=== PATIENT | male | born 1975 | race Caucasian/White ===

== ENCOUNTER 2017-03-10 11:26 | Emergency (ER) | payer BC, SELFPAY ==
[2017-03-10 11:35] VITALS: BP 128/96; PULSE 83; RESP 20; TEMP 36.5; O2SAT 98; BMI 41.7
--- NOTE | 2017-03-10 11:56 | HMH.EDABDPAI ---
ED Disposition Clinical Impression: Umbilical hernia Qualifiers: Obstruction and gangrene presence: without obstruction or gangrene Qualified Code(s): K42.9 - Umbilical hernia without obstruction or gangrene Disposition: Home, Self-Care Condition on Discharge: Good Instructions: DI for Acute Abdomen Additional Instructions: CT scan is stable with no new changes per radiologist; see Dr. Ibarra for scheduled surgery on March 24, 2017. Rx Naproxen. Prescriptions: Naproxen [EC-Naprosyn] 500 mg PO BID PRN #20 tablet.dr SORIANO Reason: Mild To Moderate Pain Referrals: Provider,Referral, [Primary Care Provider] - - Critical Care Critical Care Time: No Attestation: On 03/10/17, the high probability of a clinically significant, sudden or life threatening deterioration of the following system(s) required my full and direct attention, intervention and personal management. The time I documented below is in addition to time spent performing reported procedures but includes the following listed in this critical care notation. Medical Decision Making Vital Signs: 03/10/17 11:35 Temperature 97.7 F Temperature Source Oral Pulse Rate [Right Brachial] 83 Respiratory Rate 20 Blood Pressure [Right Arm] 128/96 Blood Pressure Mean [Right Arm] 106 Blood Pressure Source [Right Arm] Automatic Cuff Blood Pressure Position [Right Arm] Sitting 02 Sat by Pulse Oximetry 98 Oxygen Delivery Method Room Air - Lab Data Lab results reviewed: Yes: I reviewed the patient's lab results. Lab Results 03/10/17 12:00: WBC 9.3, RBC 5.61, Hgb 16.2, Hct 48.2, MCV 86.0, MCH 28.8, MCHC 33.5, RDW 12.8, Plt Count 282, MPV 7.6, Neut % (Auto) 60.6, Lymph % (Auto) 32.3, [place] % (Auto) 5.3, Eos % (Auto) 1.0, Baso % (Auto) 0.8, Neut # (Auto) 5.6, Lymph # (Auto) 3.0, [place] # (Auto) 0.5, Eos # (Auto) 0.1, Baso # (Auto) 0.1 03/10/17 12:00: Sodium 135 L, Potassium 3.7, Chloride 100, Carbon Dioxide 28, Anion Gap 10.7, BUN 12, Creatinine 0.80, Estimated Creat Clear 138, Estimated GFR > 60, Est GFR ( Amer) > 60, Glucose 91, Calcium 9.2, Total Bilirubin 0.4, AST 22, ALT 26, Alkaline Phosphatase 109, Total Protein 8.2, Albumin 3.7, Globulin 4.5 H, Albumin/Globulin Ratio 0.8 L, Amylase 39, Lipase 144 03/10/17 12:10: Urine Color Yellow, Urine Appearance Clear, Urine pH 7.0, Ur Specific [place] 1.015, Urine Protein Negative, Urine Glucose (UA) Negative, Urine Ketones Negative, Urine Blood Negative, Urine Nitrate Negative, Urine Bilirubin Negative, Urine Urobilinogen 0.2, Ur Leukocyte Esterase Negative, Urine WBC Occasional, Ur Squamous Epith Cells 5-10, Urine Bacteria 1+, Urine Mucus 1+ Result diagrams: 03/10/17 12:00 03/10/17 12:00 Orders (Tests/Meds): ED MEDICATIONS Discontinued Medications Generic Name Dose Route Start Last Admin Trade Name Chinmay PRN Reason Stop Dose Admin Iopamidol 75 ml 03/10/17 12:41 03/10/17 12:42 [id number]; 75ml Vial IV 03/10/17 12:42 75 ml ONCE ONE Administration Sodium Chloride 10 ml 03/10/17 12:41 03/10/17 12:42 Rad-Saline Flush 10ml Syringe IV 03/10/17 12:42 10 ml ONCE ONE Administration - CT Data CT Scan: Abdomen, Pelvis Time Received: 13:[address] Reviewed: Yes: I have reviewed the patient's CT results, I have viewed the radiologist's interpretation Findings Narrative: stable; small umbilical hernia per report - William Inquiry Pt receiving controlled substance: No Abdominal Pain HPI - General Chief Complaint: Abdominal Pain Stated Complaint: aggravated hernia Time Seen by Provider: 03/10/17 11:56 Mode of Arrival: Family Vehicle Source of Information: Patient Limitations: No Limitations Description of Symptoms (Recalled from ER Triage Doc. by RN): PT STATES THAT HE SAW 3 WEEKS AGO FOR UMBILICAL HERNIA AND SCHEDULED SURGERY FOR 03/24/17. PT HAS HAD HERNIA SINCE HE WAS A TEENAGER. PT STATES THAT HIS PAIN HAS BEEN GETTING WORSE THIS MORNING AROUND HIS HERNIA. - History o
--- NOTE | 2017-03-10 12:01 | ED_ITS ---
ED Disposition Clinical Impression: Umbilical hernia Qualifiers: Obstruction and gangrene presence: without obstruction or gangrene Qualified Code(s): K42.9 - Umbilical hernia without obstruction or gangrene Disposition: Home, Self-Care Condition on Discharge: Good Instructions: DI for Acute Abdomen Additional Instructions: CT scan is stable with no new changes per radiologist; see Dr. Ibarra for scheduled surgery on March 24, 2017. Rx Naproxen. Prescriptions: Naproxen [EC-Naprosyn] 500 mg PO BID PRN #20 tablet.dr SORIANO Reason: Mild To Moderate Pain Referrals: Provider,Referral, [Primary Care Provider] - - Critical Care Critical Care Time: No Attestation: On 03/10/17, the high probability of a clinically significant, sudden or life threatening deterioration of the following system(s) required my full and direct attention, intervention and personal management. The time I documented below is in addition to time spent performing reported procedures but includes the following listed in this critical care notation. Medical Decision Making Vital Signs: 03/10/17 11:35 Temperature 97.7 F Temperature Source Oral Pulse Rate [Right Brachial] 83 Respiratory Rate 20 Blood Pressure [Right Arm] 128/96 Blood Pressure Mean [Right Arm] 106 Blood Pressure Source [Right Arm] Automatic Cuff Blood Pressure Position [Right Arm] Sitting 02 Sat by Pulse Oximetry 98 Oxygen Delivery Method Room Air - Lab Data Lab results reviewed: Yes: I reviewed the patient's lab results. Lab Results 03/10/17 12:00: WBC 9.3, RBC 5.61, Hgb 16.2, Hct 48.2, MCV 86.0, MCH 28.8, MCHC 33.5, RDW 12.8, Plt Count 282, MPV 7.6, Neut % (Auto) 60.6, Lymph % (Auto) 32.3 , [place] % (Auto) 5.3, Eos % (Auto) 1.0, Baso % (Auto) 0.8, Neut # (Auto) 5.6, Lymph # (Auto) 3.0, [place] # (Auto) 0.5, Eos # (Auto) 0.1, Baso # (Auto) 0.1 03/10/17 12:00: Sodium 135 L, Potassium 3.7, Chloride 100, Carbon Dioxide 28, Anion Gap 10.7, BUN 12, Creatinine 0.80, Estimated Creat Clear 138, Estimated GFR > 60, Est GFR ( Amer) > 60, Glucose 91, Calcium 9.2, Total Bilirubin 0.4, AST 22, ALT 26, Alkaline Phosphatase 109, Total Protein 8.2, Albumin 3.7, Globulin 4.5 H, Albumin/Globulin Ratio 0.8 L, Amylase 39, Lipase 144 03/10/17 12:10: Urine Color Yellow, Urine Appearance Clear, Urine pH 7.0, Ur Specific [place] 1.015, Urine Protein Negative, Urine Glucose (UA) Negative, Urine Ketones Negative, Urine Blood Negative, Urine Nitrate Negative, Urine Bilirubin Negative, Urine Urobilinogen 0.2, Ur Leukocyte Esterase Negative, Urine WBC Occasional, Ur Squamous Epith Cells 5-10, Urine Bacteria 1+, Urine Mucus 1+ Result diagrams: 03/10/17 12:00 03/10/17 12:00 Orders (Tests/Meds): ED MEDICATIONS Discontinued Medications Generic Name Dose Route Start Last Admin Trade Name Maldonadoq PRN Reason Stop Dose Admin Iopamidol 75 ml 03/10/17 12:41 03/10/17 12:42 [id number]; 75ml Vial IV 03/10/17 12:42 75 ml ONCE ONE Administration Sodium Chloride 10 ml 03/10/17 12:41 03/10/17 12:42 Rad-Saline Flush 10ml Syringe IV 03/10/17 12:42 10 ml ONCE ONE Administration - CT Data CT Scan: Abdomen, Pelvis Time Received: 13:[address] Reviewed: Yes: I have reviewed the patient's CT results, I have viewed the radiologist's interpretation Findings Narrative: stable; small umbilical hernia per report - William Inquiry
--- NOTE | 2017-03-10 12:06 | CT_ITS ---
CT abdomen pelvis w con CLINICAL INDICATION: Increased abdominal pain. Umbilical hernia ITS.REASON: UMBILICAL HERNIA ORDERING PHYSICIAN: Coral Jaeger MD PATIENT AGE: 41 years COMPARISON: 02/14/2017 TECHNIQUE: Axial images obtained with sagittal and coronal reformats. PROCEDURE: Oral Contrast: None IV Contrast: 75 mL's [id number]-370. FINDINGS: No acute findings in the lower chest. Several isodense hepatic foci once again noted may be related to hepatic cysts as previously described not significantly changed. The gallbladder, spleen, adrenal glands, and pancreas have an unremarkable appearance. There are bilateral renal cysts not significant changed. No obvious renal or ureteral calculi or hydronephrosis. There is a small umbilical hernia containing fat which is unchanged. There is no evidence of infiltration of the fat. No bowel is evident within the hernia. There is reported appendectomy. No intestinal obstruction or free air. No pelvic mass or abnormal fluid collection. No evidence of diverticulitis. No acute bony anomalies. IMPRESSION: 1. Overall stable CT appearance of the abdomen and pelvis compared to 02/14/2017 with no acute finding. 2. Small umbilical hernia containing fat unchanged. 3. Hepatic and renal cysts unchanged
[2017-03-10 12:16] LABS: Microscopic, Urine URINE MICROSCOPIC (MICROSCOPIC)
[2017-03-10 12:18] LABS: Basophils # 0.1 K/mm3 (0-0.2); Basophils % 0.8 % (0.1-2.0); Eosinophils # 0.1 K/mm3 (0.0-0.4); Hematocrit 48.2 % (42.0-52.0); Hemoglobin 16.2 g/dL (14.1-18.0); Lymphocytes % 32.3 K/mm3 (10-50); Mean Corpuscular HGB Conc 33.5 g/dL (31.8-35.4); Mean Corpuscular Hemoglobin 28.8 pg (27.0-31.2); Mean Platelet Volume 7.6 fl (7.4-10.4); Monocytes # 0.5 K/mm3 (0.1-1.0); Monocytes % 5.3 % (1.7-9.3); Neutrophils # 5.6 K/mm3 (1.8-7.8); Neutrophils % 60.6 % (37.0-80.0); Platelet Count 282 K/mm3 (142-424); Red Blood Count 5.61 M/mm3 (4.60-6.20); Red Cell Distribution Width 12.8 % (11.5-17.5); White Blood Count 9.3 K/mm3 (4.8-10.8)
[2017-03-10 12:20] LABS: Appearance,Urine CLEAR (Clear); Bilirubin,Urine Negative (Negative); Blood, Urine Negative (Negative); Color,Urine YELLOW (Yellow); Glucose,Urine (UA) Negative (Negative); Ketones,Urine Negative (Negative); Leukocyte Esterase,Urine Negative (Negative); Nitrate,Urine Negative (Negative); Protein,Urine Negative (Negative); Specific Gravity, Urine 1.015 (1.005-1.030); Urobilinogen,Urine 0.2 EU/dl (0.2)
[2017-03-10 12:30] LABS: Alanine Aminotransferase 26 U/L (12-78); Albumin Level 3.7 gm/dL (3.4-5.0); Albumin/Globulin Ratio 0.8 (1.1-1.8); Alkaline Phosphatase 109 U/L (46-116); Amylase 39 U/L (25-125); Anion Gap 10.7 mEq/L (5-15); Aspartate Amino Transferase 22 U/L (15-37); Bilirubin,Total 0.4 mg/dL (0.2-1.0); Blood Urea Nitrogen 12 mg/dL (7-18); Calcium 9.2 mg/dL (8.5-10.1); Carbon Dioxide 28 mmol/L (21.0-32.0); Chloride 100 mmol/L (98-107); Creatinine Clearance Estimated 138 mg/ml (0-300); Estimated Glomerular Filt Rate > 60 ml/min (>60); GFR (African American) > 60 ML/MIN (>60); Globulin 4.5 gm/dl (1.3-3.2); Glucose 91 mg/dL (74-106); Lipase 144 u/L (73-393); Potassium 3.7 mmoL/L (3.5-5.1); Sodium 135 mmol/L (136-145); Total Protein,Serum 8.2 gm/dL (6.4-8.2)
[2017-03-10 12:31] LABS: Bacteria,Urine 1+ /lpf; Mucus,Urine 1+ /lpf; WBC,Urine Occasional #/hpf (0-3)
== END 2017-03-10 14:54 | disposition home or self-care (01) ==
PROVIDERS: Emergency Provider Emergency Medicine; Family Provider Nurse Practitioner Family
DX: K42.9 Umbilical hernia without obstruction or gangrene (principal); Z72.0 Tobacco use
CPT/HCPCS: 74177; 80053; 81001; 82150; 83690; 85025; 99283; Q9967

== ENCOUNTER 2017-03-24 10:46 | Day surgery (SDC) | payer BC, SELFPAY ==
[2017-03-23 16:40] VITALS: BMI 42.3
[2017-03-24] VITALS (13 sets, daily range): BP systolic 110–155; BP diastolic 58–82; PULSE 75–87; RESP 16–20; TEMP 36.7–43; O2SAT 92–98
--- NOTE | 2017-03-24 11:48 | P.PN_ITS ---
[facility] Anesthesia Checklist - Patient Identification Patient Identification: Arm Band, Verbal (Name & ) - Structural Data Admitted From: Home Planned Operative Procedure/s: ventral hernia repair Consent for Planned Operative Procedure(s) Verified: Yes Verified Documents: Surgical Consent - NPO Status Verified Time NPO: 21:00 - Additional verifications Patient : No Anesthesia Reactions: No Hx Blood Transfusions: No Blood Transfusion Reaction: No Cephalosporin Allergy: No Previous Colonoscopy: No - Cardiovascular Assessment Heart Sounds: S1 & S2 Pulse Strength: Strong Pulse Rhythm: Regular Peripheral Edema: No - Airway Assessment C-Spine Mobility Assessed: Yes TMJ Mobility Assessed: Yes Dentition: Good Dentition - Neurological Assessment Level of Consciousness: Awake, Alert, Appropriate Hx Seizures: No Numbness or tingling in extremities: No - Genitourinary Assessment Voided corporate health consultant to O.R.: Yes - Anesthesia Plan Anesthesia Risk discussed: Yes Anesthesia Plan: Verified ASA Class: III Anesthesia Type: General [facility] Anesthesia HX I have reviewed the patient's past medical history: Yes Medical History: Reports:: Hypertension Denies:: Cancer, Diabetes Mellitus Type 1, Diabetes Mellitus Type 2, Internal Pacemaker, MRSA, Seizures Other Medical History: Denies: Blood Transfusion Reaction Other Surgeries: Yes: Appendectomy. No: Pacemaker Amputation: No Fractures: No *Family Hx:: Cancer, Hypertension
--- NOTE | 2017-03-24 13:31 | HMH.OPNOTE ---
Date of procedure: 03/24/17 Pre-op Diagnosis:: Umbilical hernia Post-op diagnosis:: same Procedure performed:: Open repair of umbilical hernia with Ventralex mesh Surgeon:: Elliot Ibarra MD Bill Of Lading Clerk(s):: Tamica Guerrero CAFETERIA AIDE:: Kvng Sandhu Anesthesia: GETStephanie Estimated blood loss (mL): 15 Operative findings:: 1.5 cm defect 6.4cm Ventralex mesh secured with Ethibond Operative note:: After informed consent was obtained, the patient was taken to the operating room supine position. General anesthesia was induced and his abdomen was prepped and draped in a sterile fashion. Evaluation reveals a 1.5 cm defect that was easily reduced. The decision was made to proceed with open repair. After infiltration of local anesthetic, an infraumbilical incision was made. The tissue was carefully dissected. The hernia sac was dissected free and passed off for pathologic evaluation. Palpation revealed no obvious areas of adherence of small bowel or other tissue. A 6.4 cm Ventralex mesh was placed in position and secured with Ethibond suture. The wound was thoroughly irrigated. 2-0 Vicryl was utilized to reapproximate the skin to the underlying tissue. The skin margin was then closed with interrupted 4-0 nylon in an interrupted fashion. Sterile dressings were applied. The patient's anesthetic agents were reversed and he was extubated prior to transfer to recovery. Pathology: other Condition: stable Disposition: PACU Specimens:: Hernia sac Complications:: No immediate
--- NOTE | 2017-03-24 13:35 | P.OP_ITS ---
Date of procedure: 03/24/17 Pre-op Diagnosis:: Umbilical hernia Post-op diagnosis:: same Procedure performed:: Open repair of umbilical hernia with Ventralex mesh Surgeon:: Elliot Ibarra MD Audio Production Engineer(s):: Tamica Guerrero FIBER WORKER:: Kvng Sandhu Anesthesia: GETStephanie Estimated blood loss (mL): 15 Operative findings:: 1.5 cm defect 6.4cm Ventralex mesh secured with Ethibond Operative note:: After informed consent was obtained, the patient was taken to the operating room supine position. General anesthesia was induced and his abdomen was prepped and draped in a sterile fashion. Evaluation reveals a 1.5 cm defect that was easily reduced. The decision was made to proceed with open repair. After infiltration of local anesthetic, an infraumbilical incision was made. The tissue was carefully dissected. The hernia sac was dissected free and passed off for pathologic evaluation. Palpation revealed no obvious areas of adherence of small bowel or other tissue. A 6.4 cm Ventralex mesh was placed in position and secured with Ethibond suture. The wound was thoroughly irrigated. 2-0 Vicryl was utilized to reapproximate the skin to the underlying tissue. The skin margin was then closed with interrupted 4-0 nylon in an interrupted fashion. Sterile dressings were applied. The patient's anesthetic agents were reversed and he was extubated prior to transfer to recovery. Pathology: other Condition: stable Disposition: PACU Specimens:: Hernia sac Complications:: No immediate
--- NOTE | 2017-03-24 14:01 | HMH.ANESI ---
[facility] Anesthesia Record Part I Intake, IV Amount: 700 Estimated blood loss (mL): 10 Urine output (mL): 200 Blood Products used (#): none Blood Pressure: 155/61 SaO2: 97 Pulse Rate: 81 Respiratory Rate: 20 Temperature: 98.0 F Patient is:: Awake, Mask O2 Stable to PACU at:: 13:54
--- NOTE | 2017-03-24 14:01 | HMH.ANESII ---
[facility] Anesthesia Record Part II Discharge Time: 14:24 Destination: Surgical Day Care (OP Surgery) PACU nurse assessment reviewed?: Yes Patient Condition:: Good Anesthesia Complications:: None
--- NOTE | 2017-03-24 14:21 | PC.NURSE ---
1330-F/C REMOVED AT THIS TIME
[2017-03-24 15:38] LABS: Microscopic,Cath URINE MICROSCOPIC (MICROSCOPIC)
--- NOTE | 2017-03-24 15:43 | SUR.PHASEII ---
1 TAB NORCO 5/325MG GIVEN AT 1505 FOR PAIN
[2017-03-24 15:46] LABS: Appearance,Urine/Cath CLEAR (Clear); Bilirubin,Cath Negative (Negative); Blood, Urine/Cath Negative (Negative); Color,Urine/Cath YELLOW (Yellow); Glucose,Urine/Cath (UA) Negative (Negative); Ketones,Urine/Cath Negative (Negative); Leukocyte Esterase,Cath Negative (Negative); Nitrate,Cath Negative (Negative); PH,Urine/Cath 8.5 (5.0-8.5); Protein,Urine/Cath Negative (Negative); Specific Gravity, Urine/Cath 1.015 (1.005-1.030); Urobilinogen,Cath 0.2 EU/dl (0.2)
[2017-03-24 16:08] LABS: Bacteria,Urine/Cath 3+ /lpf; Squamous Epithelial Ur./Cath Occasional #/hpf (0-5)
== END 2017-03-24 15:40 | disposition home health service (06) ==
LOC: OR 10:48
PROVIDERS: Family Provider Nurse Practitioner Family; PCP Nurse Practitioner Family; Visit Provider Surgery
PROC: 0WQF4ZZ Repair Abdominal Wall, Percutaneous Endoscopic Approach (ICD-10-PCS; CPT 49585; principal; 2017-03-24 12:45)
DX: K42.9 Umbilical hernia without obstruction or gangrene (principal)
CPT/HCPCS: 49585; 81001; 87086; 96374; C1781; J0131; J2405

== ENCOUNTER → 2017-04-03 08:42 | Outpatient (CLI) | payer BC, SELFPAY ==
--- NOTE | 2017-04-03 08:52 | US_ITS ---
US abdomen limited Ordering Physician: Shabnam Herrera Patient Age: 41 years: Male HISTORY: ITS.REASON: HEPATIC CYST TECHNIQUE: Ultrasound right upper quadrant COMPARISON :Recent CT abdomen pelvis 03/10/2017 FINDINGS ... Difficult scan: Pancreas. Not well visualized due to adjacent bowel. Head and body pancreas appear satisfactory unremarkable. Tail obscured. Liver. Several small cysts liver which seem to correspond with the scattered small low-density areas, cyst seen at liver on recent CT March 10, 2017; as well as a previous CT abdomen from February 2017... No discrete masses or particularly suspicious appearing solid nodules at liver. Slight increased echogenicity throughout the liver reflecting mild diffuse fatty change Common duct normal diameter of 4.7 mm at hilum of liver. Portal vein appears satisfactory. Normal direction flow. Gallbladder. Only scant debris and Sludge or gallbladder no shadowing stones no gallbladder wall thickening. Spleen appears normal size. Unremarkable Left kidney. Normal size measuring 4.6 cm in length x5.5 x 6.8 cm. There is a 3.4 x 2.8 cm benign-appearing cyst lower pole left kidney. Corresponds to the recent CT studies Right kidney: Normal size and appearance 13.2 cm length X 5.9 cm x 7.8 cm.. The small 15 mm mm cyst at upper pole right kidney seen on recent CT is not visualized on ultrasound. Nonetheless strongly favor it is merely a benign cyst on recent CT. Which measured fluid density on the prior CT. IMPRESSION difficult ultrasound scan 1. Liver. Scattered small benign-appearing hepatic cyst throughout liver, match recent CT studies. No suspicious solid nodules liver.. Mild diffuse fatty change liver 2. Benign-appearing renal Cyst , lower pole left kidney. Up to 3.4 cm. (Matches benign-appearing cyst seen here on recent CTs) 3. The small 14 mm cyst upper pole right kidneyl seen on recent CT was not visualized with today's ultrasound, but strongly favor this is a benign debris-filled cyst on CT.. (However would consider follow-up RUQ ultrasound or CT abdomen with contrast 6-9 months to further evaluate this area and further confirm benign-appearing liver cyst that may stable, particularly if any persistent abdominal symptoms) 4. Gallbladder minimal debris and sludge. No calcified stones
--- NOTE | 2017-04-03 10:53 | HMH.ITSHM ---
XANAX PROZAC INHALER MIGRAINE MED
== END ==
PROVIDERS: Family Provider Nurse Practitioner Family; PCP Nurse Practitioner Family; Visit Provider Nurse Practitioner Family
DX: K76.89 Other specified diseases of liver (principal)
CPT/HCPCS: 76705

== ENCOUNTER → 2018-05-14 12:33 | Outpatient (CLI) | payer BC, SELFPAY ==
--- NOTE | 2018-05-14 12:35 | CA_ITS ---
PROCEDURE: 2-D M-mode and color Doppler study INDICATIONS FOR THE TEST: Chest pain COPD Heart Murmur Tobacco Smoking Palpitations Fatigue Syncope Edema+ Hypertension+Diabetes Mellitus Rheumatic Fever SOB+ZURITA Obesity+Hyperlipidemia Family History HD Additional History DEFINITY GIVEN TDS SECONDARY TO PT BODY HABITUS PATIENT INFORMATION HEIGHT: 74 WEIGHT:325 GENDER: Male B/P:143/74 2-D/M-MODE INTERPRETATION: 2-D MEASUREMENTS OBSERVED VALUES IN CMS Right Ventricular Dimension (RVDd) 3.8 Interventricular Septum (Thickness)(IVsd) 1.1 Left Ventricular Internal Dimensions(LVIDd) 5.3 Left Ventricular Posterior Wall (Thickness)(LVPWd) 0.9 Aortic Root 3.6 Aortic Cusp Separation 2.9 Left Atrial Dimensions (LAD) 4.7 2D 1. Left atrium is mildly enlarged, left ventricle is normal size, mild concentric left ventricular hypertrophy, visually estimated ejection fraction 55% with no regional wall motion abnormality, Definity contrast was utilized to delineate endocardial surfaces. 2. The right atrium and right ventricle are mildly enlarged with normal contractility. 3. The aortic valve is minimally thickened and fibrosed. 4. The mitral and tricuspid valvular grossly normal. 5. The pulmonic valve is poorly visualized. 6. No significant pericardial effusion noted. DOPPLER INTERROGATION: Doppler interrogation of the aortic, mitral and tricuspid valvular presence of mild mitral and tricuspid regurgitation, tricuspid regurgitation jet velocity is inadequate for calculation of the right ventricular systolic pressure, grade 1 diastolic dysfunction seen with tissue Doppler evidence of raised left atrial pressure. CONCLUSION: 1. Mildly enlarged left atrium, normal left ventricular size, mild concentric left ventricular hypertrophy, visually estimated ejection fraction 55% with no regional wall motion abnormality, Definity contrast was utilized to delineate endocardial surfaces. Grade 1 diastolic dysfunction seen with tissue Doppler evidence of raised left atrial pressure. 2. Mildly enlarged right ventricle with normal contractility. 3. Mild mitral and tricuspid regurgitation 4. No significant pericardial effusion noted.
== END ==
PROVIDERS: PCP Family Medicine; Visit Provider Nurse Practitioner Family
DX: I51.7 Cardiomegaly (principal); R06.00 Dyspnea, unspecified; R25.2 Cramp and spasm; R42 Dizziness and giddiness; R60.0 Localized edema; E66.9 Obesity, unspecified; G47.33 Obstructive sleep apnea (adult) (pediatric); Z99.89 Dependence on other enabling machines and devices
CPT/HCPCS: 93306

== ENCOUNTER 2019-05-29 16:00 | Outpatient (RCR) | payer OTHER, SELFPAY | END 2019-05-29 16:05 | disposition home or self-care (01) | LOC: PT 16:00 | PROVIDERS: Visit Provider Family Medicine | DX: M54.5 Low back pain (principal) | CPT/HCPCS: 97110; 97163 ==

== ENCOUNTER → 2019-08-28 11:46 | Outpatient (CLI) | payer BC, SELFPAY ==
[2019-08-28 16:00] LABS: Coronavirus 19 IgG Antibody Negative (Negative); Coronavirus 19 IgM Antibody Negative (Negative)
== END ==
PROVIDERS: Visit Provider Surgery
DX: Z01.818 Encounter for other preprocedural examination (principal)
CPT/HCPCS: 36415; 86328

== ENCOUNTER 2019-08-29 06:13 | Day surgery (SDC) | payer BC, SELFPAY ==
[2019-08-27 11:09] VITALS: BMI 50.0
[2019-08-29 06:38] VITALS: BP 149/87; PULSE 80; RESP 18; TEMP 36.1; O2SAT 96
--- NOTE | 2019-08-29 07:17 | HMH.ANESCL ---
[facility] Anesthesia Checklist - Patient Identification Patient Identification: Arm Band, Verbal (Name & ) - Structural Data Admitted From: Home Planned Operative Procedure/s: Colonoscopy Consent for Planned Operative Procedure(s) Verified: Yes Verified Documents: Surgical Consent, History and Physical - NPO Status Verified Time NPO: 00:00 - Chart Verification Results Verified: None - Additional verifications Anesthesia Reactions: No Hx Blood Transfusions: No Blood Transfusion Reaction: No - Airway Assessment C-Spine Mobility Assessed: Yes TMJ Mobility Assessed: Yes Dentition: Poor Dentition (Broken, decay) - Neurological Assessment Level of Consciousness: Awake, Alert, Appropriate, Follows Commands Hx Seizures: No Numbness or tingling in extremities: No - Anesthesia Plan Anesthesia Risk discussed: Yes Anesthesia Plan: Verified ASA Class: IV Anesthesia Type: [facility] History I have reviewed the patient's past medical history: Yes Medical History: Reports:: Congestive Heart Failure, Heart Murmur, Hypertension Denies:: Cancer, Diabetes Mellitus Type 1, Diabetes Mellitus Type 2, Internal Pacemaker, MRSA, Seizures *Have you ever received a pneumonia vaccine?: No *Have you received a flu vaccine this season?: No Other Medical History: Denies: Blood Transfusion Reaction Comment:: morbid obesity Anesthesia experience/problems:: No prior complications Other Surgeries: Yes: Appendectomy, Hernia Repair, Other. No: Pacemaker Amputation: No Fractures: No - *Social History Tobacco Type: smokeless tobacco Alcohol Intake: never Alcohol Intake Frequency:: holidays/special occasions only Substance Use Type: denies use *Occupational Status:: employed Housing: house Household Members: none *Travel in the last 8 weeks: None Family Hx:: Coronary Artery Disease
[2019-08-29 07:23] VITALS: O2SAT 98
[2019-08-29 08:06] VITALS: BP 109/49; PULSE 83; RESP 18; TEMP 36.5; O2SAT 96
--- NOTE | 2019-08-29 08:07 | HMH.SCOPE ---
- Procedure: Date: 08/29/19 Procedure Performed:: Colonoscopy with polypectomy Indications:: Bleeding hemorrhoids Chronic constipation Screening Performing Provider:: Elliot Ibarra MD Referring Provider:: . Sedation:: Monitored anesthesia care Procedure:: After informed consent was obtained the patient was taken to the endoscopy suite. Sedation ensued after the patient was transferred to the left lateral decubitus position. Pulse, blood pressure, and oxygen saturation were monitored throughout the procedure. Digital rectal exam revealed no significant abnormality. The colonoscope was placed in position. The entire colon was evaluated. The colonoscope was carefully removed and the patient was transferred to recovery in stable condition. Please see findings and specimens below for detail. Findings:: Bowel preparation moderate Circumferential hemorrhoidal cushions with no active bleeding or thrombosis Significant lack of relaxation Focal periappendiceal inflammatory changes Polyps (see specimens) Specimens:: Biopsy of focal periappendiceal inflammation Sessile polyp at 25 cm (snare) Lobulated polyp at 20 cm (snare) Recommendations:: Timing of repeat colonoscopy is pending pathology but will likely be between 2-3 years secondary to moderate bowel preparation and lack of relaxation. Complications:: No immediate Estimated blood obtained (mL): 1
[2019-08-29 08:16] VITALS: BP 126/66; PULSE 80; RESP 18; O2SAT 97
--- NOTE | 2019-08-29 08:16 | PC.NURSE ---
oral airway in place upon arrival to post op.
[2019-08-29 08:26] VITALS: BP 102/57; PULSE 84; RESP 18; O2SAT 94
[2019-08-29 08:56] VITALS: BP 102/57; PULSE 82; RESP 18; O2SAT 97
== END 2019-08-29 08:56 | disposition home or self-care (01) ==
LOC: OUTP 06:15
PROVIDERS: PCP Family Medicine; Visit Provider Surgery
PROC: 0DJD8ZZ Inspection of Lower Intestinal Tract, Via Natural or Artificial Opening Endoscopic (ICD-10-PCS; CPT 45385; principal; 2019-08-29 07:30)
DX: K64.9 Unspecified hemorrhoids (principal); K63.5 Polyp of colon; K63.89 Other specified diseases of intestine; I10 Essential (primary) hypertension; R01.1 Cardiac murmur, unspecified; Z90.49 Acquired absence of other specified parts of digestive tract; Z79.899 Other long term (current) drug therapy
CPT/HCPCS: 45385; J2704

== ENCOUNTER → 2021-03-09 10:39 | Outpatient (CLI) | payer BC, SELFPAY | PROVIDERS: PCP Family Medicine; Visit Provider Nurse Practitioner | DX: Z20.822 Contact with and (suspected) exposure to COVID-19 (principal) | CPT/HCPCS: C9803; U0003; U0005 ==

== ENCOUNTER 2021-03-10 13:08 | Emergency (ER) | payer BC, SELFPAY ==
[2021-03-10 14:58] VITALS: BP 155/88; PULSE 80; RESP 18; TEMP 37; O2SAT 97; BMI 48.1
--- NOTE | 2021-03-10 15:19 | HMH.EDUTC ---
[facility] [place] Clinical Impression: Bronchitis, Exposure to COVID-19 virus Sinusitis Qualifiers: Sinusitis location: unspecified location Chronicity: acute Recurrence: non-recurrent Qualified Code(s): J01.90 - Acute sinusitis, unspecified Disposition: Home, Self-Care Condition on Discharge: Good Instructions: DI for Sinusitis, DI for Acute Bronchitis, DI for COVID-19 (Suspected or Confirmed ), Preventing the Spread of Coronavirus Discharge Instructions Additional Instructions: Drink plenty of fluids. Take tylenol or ibuprofen for pain or fever. Take the medications as directed. Follow up with your regular doctor. GO TO THE ER FOR ANY WORSENING SYMPTOMS Prescriptions: Amoxicillin/Potassium Clav [Augmentin 875-125 Tablet] 1 tab PO Q12H 10 Days #20 tab Transmission Status: Received by [facility] Benzonatate [Benzonatate 100mg cap] 100 mg PO TIDP PRN #30 cap PRN Reason: Cough Transmission Status: Received by [facility] methylPREDNISolone [Medrol] 4 mg PO DIRECTED 6 Days #21 packet Transmission Status: Received by [facility] Referrals: Kayleen Shi [Primary Care Provider] - Forms: Work/School Release Time of Disposition: 16:08 Medical Decision Making - Medical Records Medical records reviewed: No: I reviewed the patient's medical records. - William Inquiry Pt receiving controlled substance: No Vital Signs: 03/10/21 14:58 03/10/21 16:41 Temperature 98.6 F 98.6 F Temperature Source Oral Pulse Rate 80 Pulse Rate [Left] 80 Respiratory Rate 18 18 Blood Pressure 155/88 H Blood Pressure [Right Arm] 155/88 H Blood Pressure Mean [Right Arm] 110 02 Sat by Pulse Oximetry 97 - Lab Data Lab results reviewed: Yes: I reviewed the patient's lab results. Lab Results 03/10/21 14:50: Influenza Type A Ag Negative, Influenza Type B Ag Negative 03/10/21 16:32: Chlamy pneumoniae PCR Not detected, Adenovirus (PCR) Not detected, B. pertussis DNA (PCR) Not detected, Coronavirus OC43 (PCR) Not detected, Coronavirus HKU1 (PCR) Not detected, Coronavirus 229E (PCR) Not detected, Coronavirus NL63 (PCR) Not detected, Human Metapneumovir PCR Not detected, Influenza A (H1) PCR Not detected, Influ A (H1N1/09) PCR Not detected, Influenza A (H3) PCR Not detected, Influenza Type A (PCR) Not detected, Influenza Type B (PCR) Not detected, M. pneumoniae (PCR) Not detected, Parainfluenza 1 (PCR) Not detected, Parainfluenza 2 (PCR) Not detected, Parainfluenza 3 (PCR) Not detected, Parainfluenza 4 (PCR) Not detected, RSV (PCR) Not detected, Entero/Rhino (PCR) Not detected [facility] [place] - General Stated complaint: covid symptoms/exposure Time Seen by Provider: 03/10/21 15:19 Mode of Arrival: Ambulatory Source of Information: Patient Limitations: No Limitations Description of Symptoms (Recalled from Triage Doc. by RN): pt c/o weakness, SOA, chills, and congestion x3 days. pt had a negative covid test on 1.3 HEENT Symptoms (Recalled from RN notes): Yes Resp Symptoms (Recalled from RN notes): Yes Skin Symptoms (Recalled from RN notes): No MS Symptoms (Recalled from RN notes): No Functional Status (Recalled from RN notes): wnl - History of Present Illness Provider Complaint: He states that for the past 3 days he has had sinus congestion, chest congestion. He denies fever. He denies shortness of breath. He has been vacccinated against covid-19. He was exposed to covid-19 by his boss having it last week. He had a negative covid-19 test yesterday. - Related Data Home Medications Medication Instructions Recorded Confirmed losartan 50 mg tablet 100 mg PO DAILY tab 05/28/18 09/14/20 Previous Rx's Medication Instructions Recorded triamterene 37.5 1 tab PO DAILY #90 tab 09/14/20 mg-hydrochlorothiazide 25 mg tablet Amoxicillin/Potassium Clav 1 tab PO Q12H 10 Days #20 tab 03/10/21 [Augmentin 875-125 Tablet] Benzonatate [Benzonatate 100mg 100 mg PO TIDP PRN #30 cap
[2021-03-10 15:45] LABS: UTC Influenza A Antigen Negative (Negative)
[2021-03-10 15:46] LABS: UTC Influenza B Antigen Negative (Negative)
[2021-03-10 16:41] VITALS: BP 155/88; PULSE 80; RESP 18; TEMP 37
[2021-03-10 17:08] LABS: Adenovirus,PCR Not Detected (NotDetected); Bordetella Pertussis Not Detected (NotDetected); Chlamydophila Pneumoniae, PCR Not Detected (NotDetected); Coronavirus 229E Not Detected (NotDetected); Coronavirus NL63 Not Detected (NotDetected); Coronavirus OC43 Not Detected (NotDetected); Coronovirus HKU1,PCR Not Detected (NotDetected); Human Metapneumovirus Not Detected (NotDetected); Influenza A, PCR Not Detected (NotDetected); Influenza AH1, 2009 Not Detected (NotDetected); Influenza AH1, PCR Not Detected (NotDetected); Influenza AH3,PCR Not Detected (NotDetected); Influenza B, PCR Not Detected (NotDetected); Mycoplasma Pneumoniae, PCR Not Detected (NotDetected); Parainfluenza 1, PCR Not Detected (NotDetected); Parainfluenza 2, PCR Not Detected (NotDetected); Parainfluenza 3, PCR Not Detected (NotDetected); Parainfluenza 4, PCR Not Detected (NotDetected); Respiratory Syncytial Virus Not Detected (NotDetected); Rhinovirus/Enterovirus Not Detected (NotDetected)
== END 2021-03-10 16:42 | disposition home or self-care (01) ==
PROVIDERS: Emergency Provider Nurse Practitioner Family; PCP Family Medicine
DX: U07.1 COVID-19 (principal); J20.9 Acute bronchitis, unspecified; J01.90 Acute sinusitis, unspecified; I10 Essential (primary) hypertension; I50.9 Heart failure, unspecified
CPT/HCPCS: 87486; 87581; 87632; 87798; 87804; 99202; C9803; G0463; U0003; U0005

== ENCOUNTER 2021-08-07 01:25 | Emergency (ER) | payer SELFPAY ==
[2021-08-07 01:26] VITALS: BP 132/81; PULSE 99; RESP 21; TEMP 36.8; O2SAT 97; BMI 50.1
[2021-08-07 01:53] VITALS: BMI 50.1
--- NOTE | 2021-08-07 01:54 | CT_ITS ---
PROCEDURE INFORMATION: Exam: CT Abdomen And Pelvis Without Contrast Exam date and time: 08/07/2021 2:08 AM Age: 46 years old Clinical indication: Abdominal pain; Localized; Left; Prior surgery; Surgery date: 6+ months; Surgery type: Umbilical hernia repair in 2017 and appendectomy as a child; Additional info: Umbilical L side abd pain, 2017 umbilical hernia TECHNIQUE: Imaging protocol: Computed tomography of the abdomen and pelvis without contrast. Total images: 1 Radiation optimization: All CT scans at this facility use at least one of these dose optimization techniques: automated exposure control; mA and/or kV adjustment per patient size (includes targeted exams where dose is matched to clinical indication); or iterative reconstruction. COMPARISON: ABDPELW CT abdomen pelvis w con 09/10/2018 6:51 PM FINDINGS: Lungs: Clear lung bases. Liver: 27 mm benign-appearing hepatic cyst, requiring no further evaluation. Hepatic steatosis is evident. Hepatomegaly at 22 cm craniocaudal dimension. Gallbladder and bile ducts: Normal. No calcified stones. No ductal dilation. Pancreas: Moderate focal inflammatory changes adjacent to the pancreatic tail are likely indicative of acute pancreatitis. Spleen: Normal. No splenomegaly. Adrenal glands: Normal. No mass. Kidneys and ureters: 42 mm likely benign left renal cyst requiring no further evaluation. 34 mm likely benign right renal cyst, requiring no further evaluation. Stomach and bowel: Unremarkable. No obstruction. No mucosal thickening. Appendix: No evidence of appendicitis. Intraperitoneal space: Unremarkable. No free air. No significant fluid collection. Vasculature: Unremarkable. No abdominal aortic aneurysm. Lymph nodes: Unremarkable. No enlarged lymph nodes. Urinary bladder: Unremarkable as visualized. Reproductive: Unremarkable as visualized. Bones/joints: Degenerative posterior osseous ridging at L5/S1. Soft tissues: Unremarkable. Other findings: Incidental pelvic phlebolith formation. IMPRESSION: 1. Moderate focal inflammatory changes adjacent to the pancreatic tail are likely indicative of acute pancreatitis. Recommend correlation with amylase/lipase. 2. Hepatic steatosis noted with hepatomegaly. COMMENTS: Consistent with the [employer]'s Incidental Findings Committee white paper (J Am Luis Angel Radiol 2018): Any incidental renal lesion less than 1 cm or classified as too small to characterize, or any incidental cystic renal lesion characterized as simple-appearing, is likely benign. No follow-up imaging is recommended for these lesions per consensus recommendations based on imaging criteria.
[2021-08-07 02:05] LABS: Microscopic, Urine URINE MICROSCOPIC (MICROSCOPIC)
--- NOTE | 2021-08-07 02:07 | PC.NURSE ---
Pt gone to RAD
[2021-08-07 02:14] LABS: Basophils # 0.3 K/mm3 (0-0.2); Basophils % 2.1 % (0.1-2.0); Eosinophils # 0.2 K/mm3 (0.0-0.4); Eosinophils % 1.7 % (0.1-12.0); Hematocrit 49.3 % (42.0-52.0); Hemoglobin 16.6 g/dL (14.1-18.0); Lymphocytes # 2.8 K/mm3 (0.7-4.5); Lymphocytes % 20.3 % (10-50); Mean Corpuscular HGB Conc 33.8 g/dL (31.8-35.4); Mean Corpuscular Hemoglobin 29.2 pg (27.0-31.2); Mean Corpuscular Volume 86.3 fl (80-94); Mean Platelet Volume 8.3 fl (7.4-10.4); Monocytes % 7.1 % (1.7-9.3); Neutrophils # 9.5 K/mm3 (1.8-7.8); Neutrophils % 68.8 % (37.0-80.0); Platelet Count 272 K/mm3 (142-424); Red Blood Count 5.71 M/mm3 (4.60-6.20); Red Cell Distribution Width 13.7 % (11.5-17.5); White Blood Count 13.8 K/mm3 (4.8-10.8)
[2021-08-07 02:15] LABS: Alanine Aminotransferase 26 U/L (12-78); Albumin Level 4.2 g/dl (3.5-5.0); Albumin/Globulin Ratio 1.1 (1.1-1.8); Alkaline Phosphatase 126 U/L (38-126); Amylase 51 U/L (30-110); Anion Gap 12.8 mEq/L (5-15); Aspartate Amino Transferase 29 U/L (17-59); Bilirubin,Total 0.4 mg/dl (0.2-1.3); Blood Urea Nitrogen 14 mg/dl (9-20); Calcium 9.1 mg/dl (8.4-10.2); Carbon Dioxide 27 mmol/L (22.0-30.0); Chloride 100 mmol/L (98-107); Creatinine Clearance Estimated 150 mL/min (50-200); Estimated Glomerular Filt Rate 120 ml/min (>60); GFR (African American) 146 ML/MIN (>60); Globulin 3.8 g/dL (1.3-3.2); Glucose 137 mg/dl (74-100); Lipase 104 U/L (23-300); Potassium 3.8 mmoL/L (3.5-5.1); Sodium 136 mmol/L (136-145)
--- NOTE | 2021-08-07 02:18 | PC.NURSE ---
Pt back from RAD
[2021-08-07 02:20] LABS: Appearance,Urine CLEAR (Clear); Bilirubin,Urine Negative (Negative); Blood, Urine Negative (Negative); Color,Urine YELLOW (Yellow); Glucose,Urine (UA) Negative (Negative); Ketones,Urine Negative (Negative); Leukocyte Esterase,Urine Negative (Negative); Nitrate,Urine Negative (Negative); PH,Urine 5.5 (5.0-8.5); Protein,Urine Negative (Negative); Specific Gravity, Urine 1.025 (1.005-1.030); Urobilinogen,Urine 0.2 EU/dl (0.2)
[2021-08-07 02:33] LABS: Amorphous Sediment,Urine Trace /lpf
[2021-08-07 02:34] LABS: Procalcitonin 0.062 ng/mL (0.0-2.0)
[2021-08-07 02:44] LABS: Erythrocyte Sedimentation Rate 17 mm/hr (0-15)
--- NOTE | 2021-08-07 02:57 | HMH.EDNVD ---
ED Disposition Clinical Impression: Pancreatitis Qualifiers: Chronicity: acute Pancreatitis type: unspecified pancreatitis type Acute pancreatitis complication: no infection or necrosis Qualified Code(s): K85.90 - Acute pancreatitis without necrosis or infection, unspecified Disposition: Home, Self-Care Condition on Discharge: Good Instructions: DI for Pancreatitis Additional Instructions: fluids and see pcp for follow up Referrals: Kayleen Shi [Primary Care Provider] - - Critical Care Critical Care Time: No Attestation: On 08/07/21, the high probability of a clinically significant, sudden or life threatening deterioration of the following system(s) required my full and direct attention, intervention and personal management. The time I documented below is in addition to time spent performing reported procedures but includes the following listed in this critical care notation. Medical Decision Making - Medical Records Medical records reviewed: Yes: I reviewed the patient's medical records. - William Inquiry Pt receiving controlled substance: No Vital Signs: 08/07/21 01:26 Temperature 98.2 F Temperature Source Oral Pulse Rate [Right] 99 H Respiratory Rate 21 Blood Pressure [Right Arm] 132/81 Blood Pressure Mean [Right Arm] 98 Blood Pressure Source [Right Arm] Automatic Cuff 02 Sat by Pulse Oximetry 97 Oxygen Delivery Method Room Air - Lab Data Lab results reviewed: Yes: I reviewed the patient's lab results. Lab Results 08/07/21 01:40: Urine Color Yellow, Urine Appearance Clear, Urine pH 5.5, Ur Specific [place] 1.025, Urine Protein Negative, Urine Glucose (UA) Negative, Urine Ketones Negative, Urine Blood Negative, Urine Nitrate Negative, Urine Bilirubin Negative, Urine Urobilinogen 0.2, Ur Leukocyte Esterase Negative, Amorphous Sediment Trace 08/07/21 01:45: WBC 13.8 H, RBC 5.71, Hgb 16.6, Hct 49.3, MCV 86.3, MCH 29.2, MCHC 33.8, RDW 13.7, Plt Count 272, MPV 8.3, Neut % (Auto) 68.8, Lymph % (Auto) 20.3, [place] % (Auto) 7.1, Eos % (Auto) 1.7, Baso % (Auto) 2.1 H, Neut # (Auto) 9.5 H, Lymph # (Auto) 2.8, Kem[place] # (Auto) 1.0, Eos # (Auto) 0.2, Baso # (Auto) 0.3 H, ESR 17 H 08/07/21 01:45: Sodium 136, Potassium 3.8, Chloride 100, Carbon Dioxide 27, Anion Gap 12.8, BUN 14, Creatinine 0.70, Estimated Creat Clear 150, Estimated GFR 120, Est GFR ( Amer) 146, Glucose 137 H, Calcium 9.1, Total Bilirubin 0.4, AST 29, ALT 26, Alkaline Phosphatase 126, C-Reactive Protein 37.0 H, Total Protein 8.0, Albumin 4.2, Globulin 3.8 H, Albumin/Globulin Ratio 1.1, Amylase 51, Lipase 104, Procalcitonin 0.062 Result diagrams: 08/07/21 01:45 08/07/21 01:45 Orders (Tests/Meds): ED MEDICATIONS Generic Name Dose Route Start Last Admin Trade Name Chinmay PRN Reason Stop Dose Admin Sodium Chloride 1,000 mls @ 999 mls/hr 08/07/21 02:00 08/07/21 02:24 Sod Chlor 0.9% 1000ml Bag IV 08/07/21 03:00 999 mls/hr .Q1H1M SANDY Administration Sodium Chloride 8 ml 08/07/21 01:56 Sodium Chloride 0.9% 10ml Vial IV 09/06/21 01:55 NEEDED PRN dilute pepcid Sodium Chloride 10 ml 08/07/21 01:56 Sodium Chloride 0.9% 10ml Flush Syringe IV 09/06/21 01:55 NEEDED PRN Maintain IV Site Discontinued Medications Generic Name Dose Route Start Last Admin Trade Name Freq PRN Reason Stop Dose Admin Famotidine 20 mg 08/07/21 01:56 08/07/21 02:23 Famotidine 20mg/2ml Vial IV 08/07/21 01:57 20 mg ONCE ONE Administration Ketorolac Tromethamine 30 mg 08/07/21 01:56 08/07/21 02:23 Ketorolac 30mg/Ml Vial IV 08/07/21 01:57 30 mg ONCE ONE Administration Metoclopramide HCl 10 mg 08/07/21 01:56 08/07/21 02:24 Metoclopramide Hcl 10mg/2ml Vial IVP 08/07/21 01:57 10 mg ONCE ONE Administration ORDERS Category Date Time Status Lipid Panel Stat Lab 06/04/22 02:55 Ordered - CT Data CT Scan: Abdomen, Pelvis Time Received: 03:[address] Reviewed: Yes: I have viewed the
[2021-08-07 03:04] LABS: Chol/HDL Ratio 3.9 (1-3.5); Cholesterol 157 mg/dl (140-200); HDL Cholesterol 40 mg/dl (40-60); Triglycerides 83 mg/dl (30-150); VLDL Cholesterol 17 mg/dL (0-40)
[2021-08-07 03:11] VITALS: BP 134/73; PULSE 84; RESP 18; TEMP 36.8; O2SAT 97
[2021-08-07 03:15] LABS: Direct LDL Cholesterol 96.54 mg/dL (100-129)
== END 2021-08-07 03:14 | disposition home or self-care (01) ==
PROVIDERS: Emergency Provider Emergency Medicine; PCP Family Medicine
DX: K85.90 Acute pancreatitis without necrosis or infection, unspecified (principal); Z72.0 Tobacco use; R01.1 Cardiac murmur, unspecified; I11.0 Hypertensive heart disease with heart failure; I50.9 Heart failure, unspecified; Z79.899 Other long term (current) drug therapy
CPT/HCPCS: 74176; 80053; 80061; 81001; 82150; 83690; 84145; 85025; 85651; 86140; 96365; 96375; 99284

== ENCOUNTER 2021-08-16 12:42 | Emergency (ER) | payer SELFPAY ==
[2021-08-16 12:57] VITALS: BP 96/65; PULSE 74; RESP 16; TEMP 36.8; O2SAT 97; BMI 50.1
--- NOTE | 2021-08-16 13:17 | HMH.EDUTC ---
[facility] [place] Disposition Clinical Impression: Viral syndrome, Bronchitis Disposition: Home, Self-Care Condition on Discharge: Good Instructions: DI for Viral Syndrome, Preventing the Spread of Coronavirus Discharge Instructions Additional Instructions: Drink plenty of fluids. Take tylenol or ibuprofen for pain or fever. Take the medications as directed. Follow up with your regular doctor. GO TO THE ER FOR ANY WORSENING SYMPTOMS Quarantine until you know the results of your covid-19 test. Notify your school or workplace of your results and follow their instructions regarding return to work/school. Prescriptions: Ondansetron [Zofran 4mg ODT] 4 mg PO Q8HP PRN #20 tab PRN Reason: Nausea Transmission Status: Received by [facility] Benzonatate [Benzonatate 100mg cap] 100 mg PO TIDP PRN #30 cap PRN Reason: Cough Transmission Status: Received by [facility] predniSONE [Prednisone 20mg Tab] 20 mg PO BID 4 Days #8 tab Transmission Status: Received by [facility] Azithromycin [Z-Justin 250mg Tab*] 250 mg PO UD DOSE PK #6 tab Transmission Status: Received by [facility] Referrals: Kayleen Shi [Primary Care Provider] - Forms: Work/School Release Time of Disposition: 13:47 Medical Decision Making - Medical Records Medical records reviewed: No: I reviewed the patient's medical records. - William Inquiry Pt receiving controlled substance: No Vital Signs: 08/16/21 12:57 08/16/21 13:25 08/16/21 13:50 Temperature 98.2 F 98.2 F 98.2 F Temperature Source Oral Oral Pulse Rate 74 Pulse Rate [Left Radial] 74 74 Respiratory Rate 16 16 16 Blood Pressure 140/78 Blood Pressure [Left Arm] 96/65 L 140/78 Blood Pressure Mean [Left Arm] 75 98 Blood Pressure Source [Left Arm] Automatic Cuff Blood Pressure Position [Left Arm] Sitting 02 Sat by Pulse Oximetry 97 97 Oxygen Delivery Method Room Air - Lab Data Lab Results 08/16/21 13:12: Group A Strep Rapid Negative 08/16/21 13:12: Influenza Type A Ag Negative, Influenza Type B Ag Negative Orders (Tests/Meds): ORDERS Category Date Time Status Full Resp Panel w/COVID ([facility]) Routine Lab 08/16/21 13:13 Received Strep Screen Confirmation Stat Micro 08/16/21 13:12 Received [facility] [place] HPI - General Stated complaint: chills/hot flashes, diarrhea, vomiting Time Seen by Provider: 08/16/21 13:18 Mode of Arrival: Ambulatory Source of Information: Patient Limitations: No Limitations Description of Symptoms (Recalled from Triage Doc. by RN): Pt reports n/v/d, chills/sweats that began on Monday of last week. PT denies fevers. - History of Present Illness Provider Complaint: He states that for the past 2 days he has had low grade fever, chills, chest congestion and cough, alonzo malaise. He was at work today, but he started chilling so he came here. - Related Data Home Medications Medication Instructions Recorded Confirmed losartan 50 mg tablet 100 mg PO DAILY tab 05/28/18 08/07/21 Triamterene/Hydrochlorothiazid 1 tab PO DAILY 08/07/21 08/07/21 [Maxzide-25 tablet] Previous Rx's Medication Instructions Recorded Azithromycin [Z-Justin 250mg Tab*] 250 mg PO UD DOSE PK #6 tab 08/16/21 Benzonatate [Benzonatate 100mg 100 mg PO TIDP PRN #30 cap 08/16/21 cap] Ondansetron [Zofran 4mg ODT] 4 mg PO Q8HP PRN #20 tab 08/16/21 predniSONE [Prednisone 20mg 20 mg PO BID 4 Days #8 tab 08/16/21 Tab] Allergies Allergy/AdvReac Type Severity Reaction Status Date / Time No Known Allergies Allergy Verified 09/14/20 15:02 [facility] History - Hepatitis A Screen Attestation statement:: This patient has been screened for Hepatitis A risk factors. I have reviewed the patient's past medical history: Yes Medical History: Reports:: Congestive Heart Failure, Heart Murmur, Hypertension Denies:: Cancer, Diabetes Mellitus Type 1, Diabetes Mellitus Type 2, Internal Pacemaker, MRSA
[2021-08-16 13:25] VITALS: BP 140/78; PULSE 74; RESP 16; TEMP 36.8; O2SAT 97; BMI 50.0
[2021-08-16 13:28] LABS: UTC Influenza A Antigen Negative (Negative); UTC Influenza B Antigen Negative (Negative)
[2021-08-16 13:31] LABS: Adenovirus,PCR Not Detected (NotDetected); Bordetella Pertussis Not Detected (NotDetected); Chlamydophila Pneumoniae, PCR Not Detected (NotDetected); Coronavirus 229E Not Detected (NotDetected); Coronavirus NL63 Not Detected (NotDetected); Coronavirus OC43 Not Detected (NotDetected); Coronovirus HKU1,PCR Not Detected (NotDetected); Human Metapneumovirus Not Detected (NotDetected); Influenza A, PCR Not Detected (NotDetected); Influenza AH1, 2009 Not Detected (NotDetected); Influenza AH1, PCR Not Detected (NotDetected); Influenza AH3,PCR Not Detected (NotDetected); Influenza B, PCR Not Detected (NotDetected); Mycoplasma Pneumoniae, PCR Not Detected (NotDetected); Parainfluenza 1, PCR Not Detected (NotDetected); Parainfluenza 2, PCR Not Detected (NotDetected); Parainfluenza 3, PCR Not Detected (NotDetected); Parainfluenza 4, PCR Not Detected (NotDetected); Respiratory Syncytial Virus Not Detected (NotDetected); Rhinovirus/Enterovirus Not Detected (NotDetected)
[2021-08-16 13:43] LABS: Strep Scrn Group A (Rapid) Negative (Negative)
[2021-08-16 13:50] VITALS: BP 140/78; PULSE 74; RESP 16; TEMP 36.8
[2021-08-16 19:01] LABS: Coronavirus 19, PCR Detected (NotDetected)
== END 2021-08-16 13:53 | disposition home or self-care (01) ==
PROVIDERS: Emergency Provider Nurse Practitioner Family; PCP Family Medicine
DX: U07.1 COVID-19 (principal)
CPT/HCPCS: 87430; 87581; 87632; 87798; 87804; 99212; C9803; G0463; U0003; U0005

== ENCOUNTER → 2022-04-08 10:22 | Outpatient (CLI) | payer BC, SELFPAY ==
--- NOTE | 2022-04-08 10:35 | US_ITS ---
FINAL REPORT CLINICAL HISTORY: RUQ PAIN COMPARISON: None FINDINGS: GALLBLADDER ULTRASOUND Technique: Ultrasound images of the right upper quadrant were obtained. Findings: Limited images of the liver parenchyma demonstrate fatty infiltration. The gallbladder is well visualized and the wall appears normal. There are no gallstones. Common duct measures 4 mm. The pancreas is obscured. Right kidney is normal in appearance and measures 14.2 cm. IMPRESSION: Fatty liver. Reviewed, Interpreted and Dictated by Pete Burciaga III, MD Transcribed by Tiffanie Blunt Authenticated and [facility]
== END ==
LOC: RAD 10:22
PROVIDERS: PCP Family Medicine; Visit Provider Nurse Practitioner Family
DX: R10.11 Right upper quadrant pain (principal)
CPT/HCPCS: 76705

== ENCOUNTER → 2022-05-02 10:14 | Outpatient (CLI) | payer BC, SELFPAY ==
--- NOTE | 2022-05-02 10:21 | NM_ITS ---
FINAL REPORT CLINICAL HISTORY: RUQ PAIN 10:55am 7.91 mci tc choletec 3.3 mcg cck moderate pain with cck FINDINGS: Sequential anterior projection images of the abdomen were obtained after the intravenous injection of 7.91 mCi technetium 99m Choletec. There is normal uptake of radiotracer by the liver. The common duct activity is normal. Gallbladder activity is seen by 60 minutes. Bowel activity is normal. After 1 hour, 3.3 mcg of CCK was injected intravenously for calculation of gallbladder ejection fraction. The gallbladder ejection fraction is 7 %. IMPRESSION: Low gallbladder ejection fraction with no evidence of cholecystitis. Reviewed, Interpreted and Dictated by Geovanna Villareal MD Transcribed by Tanvi Tinajero Authenticated and [facility]
--- NOTE | 2022-05-02 11:09 | HMH.ITSHM ---
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 []LOSARTAN
== END ==
LOC: RAD 10:14
PROVIDERS: PCP Family Medicine; Visit Provider Nurse Practitioner Family
DX: R10.11 Right upper quadrant pain (principal)
CPT/HCPCS: 78227; A9537; J2805

== ENCOUNTER 2022-05-02 20:44 | Emergency (ER) | payer BC, SELFPAY ==
[2022-05-02 20:52] VITALS: BP 166/97; PULSE 95; O2SAT 97
[2022-05-02 21:01] VITALS: BP 125/74; PULSE 91; O2SAT 95
[2022-05-02 21:07] VITALS: BP 166/97; PULSE 97; RESP 22; TEMP 36.5; O2SAT 97; BMI 46.3
--- NOTE | 2022-05-02 21:12 | HMH.EDABDPAI ---
Discharge Plan Disposition Patient Disposition: Home, Self-Care Chief Complaint: Abdominal Pain Prescriptions Prescriptions: No Action triamterene-hydrochlorothiazid 37.5-25 mg tablet 1 tab PO DAILY Qty: 90 3RF losartan 50 mg tablet 100 mg PO DAILY Label Comments: Referrals Follow up/Referrals: Aleena Quintana APRN [Primary Care Provider] - See instructions Clinical Impressions Clinical Impression: Gallbladder attack Instructions Patient Instructions: Acute Abdominal Pain Discharge ED Provider: Esequiel (ED)Mookie Abdominal Pain HPI General Chief Complaint: Abdominal Pain Stated Complaint: right side pain Time Seen by Provider: 05/02/22 21:12 Mode of Arrival: Ambulatory Source of Information: Patient and Medical Record Limitations: No Limitations Description of Symptoms (Recalled from ER Triage Doc. by RN): pt c/o R sided abd pain. denies n/v/d. pt states he had a HIDA scan today and was told he would be schedules for a eric. pts pcp told him if his pain got worse to come into the ER. pain is 9/10 History of Present Illness HPI narrative: pt with rt sided abd pain with abn hida with no vomiting MD complaint: abdominal pain Onset (ago): day(s) Consistency: intermittent Location: RUQ Severity: moderate Associated symptoms: nausea Related Data Home Medications Medication Instructions Recorded Confirmed losartan 50 mg tablet 100 mg PO DAILY High blood pressure 05/28/18 01/04/22 Previous Rx's Medication Instructions Recorded triamterene 37.5 1 tab PO DAILY Fluid #90 tabs 01/04/22 mg-hydrochlorothiazide 25 mg tablet Allergies Allergy/AdvReac Type Severity Reaction Status Date / Time No Known Allergies Allergy Verified 01/04/22 14:13 [facility] Disclaimer: The information contained in this section may have been updated after the patient was seen, as this information can be updated by other users. Social History Smoking Status: Never smoker second hand exposure: No alcohol intake: never counseling provided: provider counseling substance use type: denies use current occupational status: employed Travel in the last 8 weeks: Inside the [place] household members: none housing: house current occupation: [employer] current occupational exposures/hazards: Yes caffeine: No ROS Obtained: Yes All systems reviewed & no additional complaints except as documented Physical Exam General General appearance: alert Head Head exam: normocephalic Eye Eye exam: Present PERRL and EOMI ENT ENT exam: Present mucous membranes moist Neck Neck exam: Present trachea midline Respiratory Respiratory exam: Absent respiratory distress Cardiovascular Cardiovascular exam: Present regular rate Abdominal Exam Abdominal exam: Present soft, tenderness and Oneal's sign; Absent guarding, rebound or rigidity Abdominal tenderness: Present RUQ and moderate Extremities Exam Extremities exam: Present full ROM Neurological Exam Neurological exam: Present alert, oriented X3 and CN II-XII intact; Absent motor sensory deficit Psychiatric Psychiatric exam: Present normal affect Skin Skin exam: Absent rash Medical Decision Making Medical Records Medical records reviewed: Yes I reviewed the patient's medical records. William Inquiry Pt receiving controlled substance: No Vital Signs: 05/02/22 21:07 Temperature 97.7 F Temperature Source Oral Pulse Rate [Right] 97 H Respiratory Rate 22 Blood Pressure [Right Arm] 166/97 H Blood Pressure Mean [Right Arm] 120 Blood Pressure Source [Right Arm] Automatic Cuff Blood Pressure Position [Right Arm] Sitting 02 Sat by Pulse Oximetry 97 Oxygen Delivery Method Room Air Lab Data Lab results reviewed: Yes I reviewed the patient's lab results. Lab Results 05/02/22 20:55: WBC 8.8, RBC 5.35, Hgb 15.7, Hct 45.9, MCV 85.8, MCH 29.4, MCHC 34.3, RDW 13.0, Plt Count 229, M
[2022-05-02 21:22] LABS: Microscopic, Urine URINE MICROSCOPIC (MICROSCOPIC)
[2022-05-02 21:23] LABS: Basophils # 0.1 K/mm3 (0-0.2); Basophils % 1.6 % (0.1-2.0); Eosinophils # 0.1 K/mm3 (0.0-0.4); Eosinophils % 1.4 % (0.1-12.0); Hematocrit 45.9 % (42.0-52.0); Hemoglobin 15.7 g/dL (14.1-18.0); Lymphocytes # 3.1 K/mm3 (0.7-4.5); Lymphocytes % 34.9 % (10-50); Mean Corpuscular HGB Conc 34.3 g/dL (31.8-35.4); Mean Corpuscular Hemoglobin 29.4 pg (27.0-31.2); Mean Corpuscular Volume 85.8 fl (80-94); Mean Platelet Volume 8.7 fl (7.4-10.4); Monocytes # 0.6 K/mm3 (0.1-1.0); Monocytes % 6.4 % (1.7-9.3); Neutrophils # 4.9 K/mm3 (1.8-7.8); Neutrophils % 55.7 % (37.0-80.0); Platelet Count 229 K/mm3 (142-424); Red Blood Count 5.35 M/mm3 (4.60-6.20); White Blood Count 8.8 K/mm3 (4.8-10.8)
[2022-05-02 21:24] LABS: Appearance,Urine CLEAR (Clear); Bilirubin,Urine Negative (Negative); Blood, Urine Negative (Negative); Color,Urine YELLOW (Yellow); Glucose,Urine (UA) TRACE (Negative); Ketones,Urine Negative (Negative); Leukocyte Esterase,Urine Negative (Negative); Nitrate,Urine Negative (Negative); Protein,Urine Negative (Negative); Specific Gravity, Urine 1.025 (1.005-1.030)
[2022-05-02 21:25] LABS: Chloride 101 mmol/L (98-107); Sodium 137 mmol/L (136-145)
[2022-05-02 21:26] LABS: Potassium 3.4 mmoL/L (3.5-5.1)
[2022-05-02 21:28] LABS: Alanine Aminotransferase 50 U/L (12-78); Alkaline Phosphatase 106 U/L (38-126); Amylase 77 U/L (30-110); Anion Gap 9.4 mEq/L (5-15); Aspartate Amino Transferase 44 U/L (17-59); Bilirubin,Total 0.4 mg/dl (0.2-1.3); Blood Urea Nitrogen 16 mg/dl (9-20); Carbon Dioxide 30 mmol/L (22.0-30.0); Creatinine Clearance Estimated 150 mL/min (50-200); Estimated Glomerular Filt Rate 120 ml/min (>60); GFR (African American) 146 ML/MIN (>60); Glucose 168 mg/dl (74-100); Lipase 217 U/L (23-300)
[2022-05-02 21:29] LABS: Albumin Level 4.1 g/dl (3.5-5.0); Albumin/Globulin Ratio 1.1 (1.1-1.8); Globulin 3.6 g/dL (1.3-3.2); Total Protein,Serum 7.7 g/dl (6.3-8.2)
[2022-05-02 21:30] VITALS: BP 132/65; PULSE 87; O2SAT 97
[2022-05-02 21:57] VITALS: BP 113/55; PULSE 87; RESP 20; TEMP 36.7; O2SAT 98
[2022-05-02 22:12] LABS: Bacteria,Urine 1+ /lpf; Mucus,Urine 1+ /lpf; WBC,Urine Occasional #/hpf (0-3)
== END 2022-05-02 22:05 | disposition home or self-care (01) ==
PROVIDERS: Emergency Provider Emergency Medicine; PCP Nurse Practitioner Family
DX: K82.9 Disease of gallbladder, unspecified (principal); R10.11 Right upper quadrant pain
CPT/HCPCS: 80053; 81001; 82150; 83690; 85025; 96361; 96374; 96375; 99285; J2405

== ENCOUNTER → 2022-05-16 07:59 | Outpatient (CLI) | payer BC, SELFPAY ==
--- NOTE | 2022-05-16 07:59 | CT_ITS ---
FINAL REPORT CLINICAL HISTORY: History of pancreatitis COMPARISON: 08/07/2021 FINDINGS: CT OF THE ABDOMEN AND PELVIS WITH CONTRAST Axial CT images of the abdomen and pelvis were obtained after the administration of oral and iv contrast. Coronal reformatted images were also obtained and reviewed.This study was performed with techniques to keep radiation doses as low as reasonably achievable (ALARA). Individualized dose reduction techniques using automated exposure control or adjustment of mA and/or kV according to the patient's size were employed. Abdomen: There is a 15 mm nodule in the medial right lung base which is new from prior exam.. The heart is normal in size. There is mild, diffuse fatty infiltration of the liver as well as a 23 mm, low-attenuation mass in the posterior dome. There is a 5.1 cm, low-attenuation mass anterior to the distal pancreas of uncertain etiology which could represent pseudocyst or other cystic mass. There is also a low-attenuation area in the body of the pancreas measuring 5.5 cm, with abnormal soft tissue extending posterior to the body, measuring 3.5 cm in transverse dimension which abuts the SMA. There is also a 17 mm low-attenuation area at the uncinate process of uncertain etiology. Mass not excluded. Findings are worrisome for neoplastic involvement. The spleen is unremarkable. No adrenal mass is present. There are bilateral renal cysts. The kidneys are otherwise normal, without evidence of solid mass or hydronephrosis. The aorta is normal in caliber. There is portacaval adenopathy measuring up to 3.2 cm which may be reactive or neoplastic. Pelvis: The appendix is not well-visualized. The urinary bladder is unremarkable. No inflammatory process is seen. There is no evidence of bowel obstruction. IMPRESSION: Abnormal appearance of the pancreatic body with posterior soft tissue worrisome for neoplasm. 17 mm, low-attenuation area at the uncinate process of uncertain etiology, mass not excluded. 15 mm lung nodule, new from prior exam. 25 mm mass at the posterior liver dome, nonspecific. Portacaval adenopathy measuring up to 3.2 cm which may be reactive or neoplastic. Recommend PET-CT for further evaluation. Reviewed, Interpreted and Dictated by Pete Burciaga III, MD Transcribed by Lindy Smith Authenticated and [facility]
== END ==
LOC: RAD 07:59
PROVIDERS: PCP Nurse Practitioner Family; Visit Provider Surgery
DX: K82.8 Other specified diseases of gallbladder (principal)
CPT/HCPCS: 74177; Q9967

== ENCOUNTER 2023-09-27 08:55 | Observation (INO) | payer BC, SELFPAY ==
[2023-09-27] VITALS (23 sets, daily range): BP systolic 92–131; BP diastolic 50–81; PULSE 50–92; RESP 14–20; TEMP 36.4–37.3; O2SAT 91–100; BMI 35.9; BMI 36.3
--- NOTE | 2023-09-27 08:57 | XR_ITS ---
FINAL REPORT CLINICAL HISTORY: weakness, chills, cancer pt FINDINGS: No acute pulmonary opacity is present. There is no evidence of effusion or pneumothorax. Mediastinum is unremarkable. Right jugular Port-A-Cath tip is in the SVC. Heart size is normal. IMPRESSION: No acute abnormality. Reviewed, Interpreted and Dictated by Eligio Palomares MD Transcribed by Deysi Odell Authenticated and [facility]
--- NOTE | 2023-09-27 08:59 | ED_ITS ---
Discharge Plan Disposition Patient Disposition: Admitted Prescriptions Prescriptions: No Action hydrocodone-acetaminophen 5-325 mg tablet 1 tab PO Q4-6H PRN (Reason: pain) Qty: 60 0RF triamterene-hydrochlorothiazid 37.5-25 mg tablet See Rx Instructions .ROUTE .COMPLEX Qty: 90 4RF Dose Instruction: TAKE 1 TABLET BY MOUTH ONCE DAILY FOR FLUID Rx Instructions: TAKE 1 TABLET BY MOUTH ONCE DAILY FOR FLUID losartan 50 mg tablet 100 mg PO DAILY Patient Comments: Referrals Follow up/Referrals: Provider,Referral, MD [Referring] - See instructions Clinical Impressions Clinical Impression: Prolonged QT interval, General weakness, SIRS (systemic inflammatory response syndrome), Enteritis, Lesion of liver, Pulmonary nodule, History of pancreatic cancer Print Language Print Language: Indonesian Discharge ED Provider: Anabela Knox General Adult HPI General Chief complaint: Weakness Stated complaint: SHAKING, GENERALIZED PAIN Time Seen by Provider: 09/27/23 09:03 History of Present Illness HPI narrative: This patient is a 48-year-old male with a history of potentially metastatic pancreatic adenocarcinoma status post chemo/radiation at [facility], last treatment 08/08/23, as well as h/o recurrent neutropenia and prior admission for sepsis and respiratory failure in the past presenting with concern for diaphoresis and shakiness. Patient states that he was feeling okay last night when he went to bed, but he woke up this morning very shaky, hurting all over, and having diffuse sweating. He states that he feels like he cannot move his arms because they are very weak and painful. He denies experiencing anything like this in the past. He states he felt very hot but is not sure if he had a fever. No headache, vision changes, chest pain, shortness of breath, abdominal pain, vomiting, changes in bowel movements, or other concerns. He arrives by EMS who noted that en route, he received a liter bolus of IV fluids as well as IV Toradol and Zofran. EMS noted patient was stable en route. They did put him on 2 L nasal cannula for the ride. His sisters arrived and noted that they heard him calling out for help today and found him incredibly diaphoretic, prompting them to call EMS. They note that this seems kind of similar to an episode that he had in the past, in which he had to be admitted at for low blood pressure. I reviewed medical records and noted that the patient was admitted with hypotension in the setting of undifferentiated shock. This was back in June. They thought potentially he could be having anaphylaxis to Neulasta. He had no growth on blood cultures at that time and CT scans showed no PE and stable mass encompassing his splenic artery and abutting his portal vein and SMA. He had a TTE that showed EF of 60 to 70% without gross abnormality. His hypertension medications were discontinued at that time. Related Data Home Medications ?Medication ?Instructions ?Recorded ?Confirmed losartan 50 mg tablet 100 mg PO DAILY High blood pressure 05/28/18 05/19/22 Previous Rx's ?Medication ?Instructions ?Recorded hydrocodone 5 mg-acetaminophen 325 1 tab PO Q4-6H PRN pain #60 tabs 06/06/22 mg tablet triamterene 37.5 See Rx Instructions .Route 12/22/22 mg-hydrochlorothiazide 25 mg tablet .COMPLEX #90 tabs Allergies Allergy/AdvReac Type Severity Reaction Status Date / Time irinotecan Allergy Verified 09/27/23 09:24 [facility] Disclaimer: The information contained in this section may have been updated after the patient was seen, as this information can be updated by other users. Medical History HTN (hypertension) Social History Smoking Status: Never smoker second hand exposure: No alcohol intake: never counseling provided: provider counseling substance use type: denies use current occupational status: employed Travel in the last 8 weeks: Inside the [place] household members: none housing: house current occupation: [employer] current occupational exposures/hazards: Yes caffeine: No ROS Obtained: Yes All systems reviewed & no additional complaints except as documented Physical Exam General General appearance: alert and obese Comment: Ill-appearing, tired appearing Head Head exam: atraumatic and normocephalic Eye Eye exam: Present normal appearance, PERRL and EOMI ENT ENT exam: Present normal exam, normal oropharynx, mucous membranes moist and normal external ear exam Neck Neck exam: Present normal inspection, full ROM and trachea midline; Absent tenderness Chest Chest inspection: Present normal inspection and symmetric chest wall rise; Absent tenderness Respiratory Respiratory exam: Present normal lung sounds bilaterally; Absent respiratory distress, wheezes, stridor or accessory muscle use Cardiovascular Cardiovascular exam: Present regular rate and normal rhythm Abdominal Exam Abdominal exam: Present soft; Absent distention, tenderness or guarding Extremities Exam Extremities exam: Present normal inspection, full ROM and normal capillary refill; Absent tenderness or edema Back Exam Back exam: Present normal inspection and full ROM; Absent tenderness Neurological Exam Neurological exam: Present alert, oriented X3, CN II-XII intact and normal gait; Absent motor sensory deficit Psychiatric Psychiatric exam: Present normal affect and normal mood Skin Skin exam: Present warm and dry Medical Decision Making Medical Records Medical records reviewed: Yes I reviewed the patient's medical records. William Inquiry Pt receiving controlled substance: No Vital Signs: 09/27/23 08:52 09/27/23 08:55 09/27/23 09:04 Temperature 97.6 F Temperature Source Oral Pulse Rate 52 L 55 L Pulse Rate [Right Radial] 53 L Respiratory Rate 14 Blood Pressure 110/57 L 102/57 L Blood Pressure [Right Arm] 110/57 L Blood Pressure Mean [Right Arm] 74 Blood Pressure Source [Right Arm] Automatic Cuff Blood Pressure Position [Right Arm] Sitting 02 Sat by Pulse Oximetry 100 98 99 Oxygen Delivery Method Room Air Nasal Cannula Room Air Oxygen Flow Rate (LPM) 3 09/27/23 09:30 09/27/23 10:01 09/27/23 10:28 Temperature 98.1 F Temperature Source Oral Pulse Rate 52 L 53 L Pulse Rate [Right Radial] Respiratory Rate Blood Pressure 94/63 L 92/55 L Blood Pressure [Right Arm] Blood Pressure Mean [Right Arm] Blood Pressure Source [Right Arm] Blood Pressure Position [Right Arm] 02 Sat by Pulse Oximetry 95 98 Oxygen Delivery Method Oxygen Flow Rate (LPM) 09/27/23 10:30 09/27/23 11:00 09/27/23 11:33 Temperature Temperature Source Pulse Rate 53 L 50 L 92 H Pulse Rate [Right Radial] Respiratory Rate Blood Pressure 92/50 L 104/72 L 131/70 Blood Pressure [Right Arm] Blood Pressure Mean [Right Arm] Blood Pressure Source [Right Arm] Blood Pressure Position [Right Arm] 02 Sat by Pulse Oximetry 98 98 94 L Oxygen Delivery Method Oxygen Flow Rate (LPM) 09/27/23 12:19 09/27/23 12:30 09/27/23 13:00 Temperature Temperature Source Pulse Rate 64 58 L 56 L Pulse Rate [Right Radial] Respiratory Rate Blood Pressure 126/79 129/81 111/66 Blood Pressure [Right Arm] Blood Pressure Mean [Right Arm] Blood Pressure Source [Right Arm] Blood Pressure Position [Right Arm] 02 Sat by Pulse Oximetry 100 99 94 L Oxygen Delivery Method Oxygen Flow Rate (LPM) 09/27/23 13:30 09/27/23 14:00 09/27/23 14:30 Temperature Temperature Source Pulse Rate 54 L 57 L 54 L Pulse Rate [Right Radial] Respiratory Rate Blood Pressure 115/70 118/70 105/67 L Blood Pressure [Right Arm] Blood Pressure Mean [Right Arm] Blood Pressure Source [Right Arm] Blood Pressure Position [Right Arm] 02 Sat by Pulse Oximetry 97 96 95 Oxygen Delivery Method Oxygen Flow Rate (LPM) 09/27/23 15:00 Temperature Temperature Source Pulse Rate 53 L Pulse Rate [Right Radial] Respiratory Rate Blood Pressure 97/69 L Blood Pressure [Right Arm] Blood Pressure Mean [Right Arm] Blood Pressure Source [Right Arm] Blood Pressure Position [Right Arm] 02 Sat by Pulse Oximetry 97 Oxygen Delivery Method Oxygen Flow Rate (LPM) Lab Data Lab results reviewed: Yes I reviewed the patient's lab results. Lab Results 09/27/23 08:20: WBC 3.6 L, RBC 4.08 L, Hgb 13.5 L, Hct 40.0 L, MCV 98.0 H, MCH 33.2 H, MCHC 33.9, RDW 14.9, Plt Count 122 L, MPV 8.6, Neut % (Auto) 75.3, Lymph % (Auto) 11.6, [place] % (Auto) 8.2, Eos % (Auto) 4.0, Baso % (Auto) 0.9, Neut # (Auto) 2.7, Lymph # (Auto) 0.4 L, [place] # (Auto) 0.3, Eos # (Auto) 0.1, Baso # (Auto) 0.0, D-Dimer 0.47, Sodium 136, Potassium 4.5, Chloride 108 H, Carbon Dioxide 24, Anion Gap 8.5, BUN 8 L, Creatinine 0.40 L, Estimated Creat Clear 397 H, Estimated GFR 228, Est GFR ( Amer) 276, Glucose 96, Lactate 2.4 H, Calcium 8.9, Magnesium 1.7, Total Bilirubin 1.4 H, AST 74 H, ALT 28, Alkaline Phosphatase 149 H, Total Creatine Kinase 32 L, Troponin I < 0.01, C-Reactive Protein 10.0 H, NT-Pro-B Natriuret Pep 179 H, Total Protein 7.1, Albumin 2.9 L, Globulin 4.2 H, Albumin/Globulin Ratio 0.7 L, Lipase 27, Procalcitonin 0.098, TSH 0.47, Thyroxine (T4) 12.4 H 09/27/23 09:05: VBG pH 7.52 H, VBG pCO2 29.5 L, VBG pO2 93.5 H, VBG HCO3 23.4, VBG Total CO2 24.3, VBG O2 Saturation 97.9 H, VBG Base Excess 0.5, VBG Lactic Acid 2.7 H 09/27/23 09:06: Chlamy pneumoniae PCR Not detected, Adenovirus (PCR) Not detected, B. pertussis DNA (PCR) Not detected, Coronavirus OC43 (PCR) Not detected, Coronavirus HKU1 (PCR) Not detected, Coronavirus 229E (PCR) Not detected, SARS-CoV-2 (PCR) Not detected 09/27/23 09:06: SARS-CoV-2 (PCR) Not detected, Coronavirus NL63 (PCR) Not detected, Human Metapneumovir PCR Not detected, Influenza A (H1) PCR Not detected, Influ A (H1N1/09) PCR Not detected, Influenza A (H3) PCR Not detected, Influenza Type A (PCR) Not detected, Influenza A Untype (PCR) Not detected, Influenza Type B (PCR) Not detected 09/27/23 09:06: Influenza Type B (PCR) Not detected, M. pneumoniae (PCR) Not detected, Parainfluenza 1 (PCR) Not detected, Parainfluenza 2 (PCR) Not detected, Parainfluenza 3 (PCR) Not detected, Parainfluenza 4 (PCR) Not detected, RSV (PCR) Not detected, Entero/Rhino (PCR) Not detected 09/27/23 11:44: Urine Color Yellow, Urine Appearance Clear, Urine pH 8.0, Ur Specific Bradley 1.020, Urine Protein Negative, Urine Glucose (UA) Negative, Urine Ketones Negative, Urine Blood Negative, Urine Nitrate Negative, Urine Bilirubin Negative, Urine Urobilinogen 2.0, Ur Leukocyte Esterase Negative, Urine RBC None, Urine WBC None, Ur Squamous Epith Cells None, Urine Bacteria None 09/27/23 12:17: Troponin I < 0.01 09/27/23 13:17: Lactate 1.8 09/27/23 08:20 09/27/23 08:20 Orders (Tests/Meds): ED MEDICATIONS Generic Name Dose Route Start Last Admin Trade Name Freq PRN Reason Stop Dose Admin Sodium Chloride 10 ml 09/27/23 11:56 09/27/23 11:59 Sodium Chloride 0.9% 10ml Syr (Rad Only) IV 10/27/23 11:55 10 ml NEEDED PRN Administration Maintain IV Site Discontinued Medications Generic Name Dose Route Start Last Admin Trade Name Freq PRN Reason Stop Dose Admin Lactated Ringer's 1,000 mls @ 999 mls/hr 09/27/23 09:46 09/27/23 09:57 Lactated Ringer's 1000 Ml Bag IV 09/27/23 10:46 999 mls/hr .Q1H1M ONE Administration Magnesium Sulfate 2 gm in 50 mls @ 50 mls/hr 09/27/23 12:36 09/27/23 12:46 Magnesium Sulfate 2gm/50ml Premix IV 09/27/23 13:35 50 mls/hr ONCE ONE Administration Piperacillin Sod/Tazobactam 50 mls @ 100 mls/hr 09/27/23 13:33 09/27/23 14:25 Sod 3.375 gm/ Sodium Chloride IV 09/27/23 14:02 100 mls/hr ONCE ONE Administration Vancomycin HCl 2,500 mg/ 250 mls @ 125 mls/hr 09/27/23 13:45 09/27/23 14:56 Sodium Chloride IV 09/27/23 15:44 125 mls/hr ONCE ONE Administration Iopamidol 100 ml 09/27/23 11:56 09/27/23 11:59 Iopamidol-370 (76%);100ml Bottle IV 09/27/23 11:57 100 ml ONCE ONE Administration Iopamidol 80 ml 09/27/23 11:57 09/27/23 11:59 Iopamidol-370 (76%);100ml Bottle IV 09/27/23 11:58 80 ml ONCE ONE Administration Miscellaneous 1 each 09/27/23 13:45 Vancomycin Consult Request NOTAPPLIC 10/27/23 13:44 [facility] Sodium Chloride 40 ml 09/27/23 11:56 09/27/23 11:58 0.9 % Sodium Chloride 50 Ml Vial IV 09/27/23 11:57 40 ml ONCE ONE Administration Sodium Chloride 40 ml 09/27/23 11:56 09/27/23 11:58 0.9 % Sodium Chloride 50 Ml Vial IV 09/27/23 11:57 40 ml ONCE ONE Administration ORDERS Category Date Time Status CT abdomen pelvis w con Stat Cat Scan 09/27/23 10:[address] angio head Stat Cat Scan 09/27/23 10:[address] angio neck Stat Cat Scan 09/27/23 10:[address] head/brain wo con Stat Cat Scan 09/27/23 10:44 Completed CTA Chest [CT angio chest PE protocol] Stat Cat Scan 09/27/23 10:24 Completed CXR --portable [XR chest portable] Stat Exams 09/27/23 08:57 Completed POCUS Point of Care (ER Only) Stat Exams 09/27/23 10:22 Completed BNP [NT Pro Brain Natriuretic Pep.] Stat Lab 09/27/23 08:20 Completed CK [Creatine Kinase] Stat Lab 09/27/23 08:20 Completed CRP [C-Reactive Protein] Stat Lab 09/27/23 08:20 Completed Complete Blood Count Auto Diff Stat Lab 09/27/23 08:20 Completed Comprehensive Metabolic Panel Stat Lab 09/27/23 08:20 Completed D-Dimer Stat Lab 09/27/23 08:20 Completed Full Resp Panel w/COVID ([facility]) Routine Lab 09/27/23 09:06 Completed Lactic Acid Follow Up (RFLX 1) Stat Lab 09/27/23 13:17 Completed Lactic Acid Stat Lab 09/27/23 08:20 Completed Lipase Stat Lab 09/27/23 08:20 Completed Magnesium Stat Lab 09/27/23 08:20 Completed Procalcitonin Stat Lab 09/27/23 08:20 Completed Rapid PCR Covid and Flu A/B Stat Lab 09/27/23 09:06 Completed T4 (Thyroxine) Stat Lab 09/27/23 08:20 Completed TSH [Thyroid Stimulating Hormone] Stat Lab 09/27/23 08:20 Completed Trop I [Troponin I] Stat Lab 09/27/23 08:20 Completed Troponin I Q3H Lab 09/27/23 12:17 Completed UA [Urinalysis and Microscopic] Stat Lab 09/27/23 11:44 Completed Blood Culture Stat Micro 09/27/23 08:12 Received Urine Culture Stat Micro 09/27/23 11:44 Received VBG [Venous Blood Gas] Stat RT 09/27/23 09:05 Completed ECG Data Tracing #1: I reviewed this ECG and interpreted as documented below: Sinus bradycardia with a ventricular rate of 51 bpm. Prolonged QT interval. No acute ST changes concerning for ischemia. ECG initial impression date: 09/27/23 ECG initial impression time: 09:05 Tracing #2: I reviewed this ECG and interpreted as documented below: Sinus bradycardia with a ventricular rate of 50 bpm. Prolonged QT interval with QTc of 494 QTc of 466. No acute ST changes concerning for ischemia. ECG initial impression date: 09/27/23 ECG initial impression time: 10:34 Medical Decision Narrative: In summary, this patient is a 48-year-old male presenting to the Emergency Department for evaluation of diaphoresis, general weakness, and myalgias. Differential diagnoses considered include but are not limited to sepsis, ACS, dysrhythmia, electrolyte derangements, PE, pneumonia, viral syndrome. Ruling out the most morbid conditions drove assessment. It should be noted patient's history includes pancreatic cancer which may or may not be at goal therapy. This complicates all aspects of care by increasing patient's risk for morbidity. I reviewed patient's past medical records and noted previous evaluations at and previous admission for undifferentiated shock as per HPI. On exam, the patient is ill-appearing. He is very tired appearing. He is hemodynamically stable upon arrival. He already received 1 L bolus with EMS, however his pressures are soft. Will administer a second liter bolus. He has no focal neurologic deficits on exam, and cardiopulmonary and abdominal exams are benign. Workup included broad lab evaluation to evaluate for infectious, metabolic, cardiac causes of the patient's symptoms. I independently interpreted chest x-ray prior to the radiologist read and noted no acute focal consolidation concerning for pneumonia. Please see their read for final interpretation. Labs were obtained that demonstrated leukopenia, low venous CO2, lactic acidosis, and metabolic alkalosis. AST is mildly elevated. CRP is elevated. Procalcitonin is normal. He is negative for COVID and flu. Full respiratory panel was added. On subsequent reassessment, patient is very tired appearing even though he has not taken his pain medications yet this morning. His pressure is also trending downward with reassessment pressure on cardiac telemetry 92/55 with a MAP in the mid 60s. Fluid resuscitation is ongoing, but his pressure continues to trend downward. He is mildly bradycardic. EKG obtained demonstrated prolonged QT interval with a QT of 488 and QTc of 465. He has sinus bradycardia without obvious ST changes concerning for ischemia. Ultimately, he does meet SIRS criteria with hypercarbia, leukopenia, and elevated lactic acid, but I do not note source of infection at this time. Will obtain CT scan of the head, CTA head neck, and CT scan chest, abdomen, and pelvis with IV contrast. On reassessment, patient did have improved blood pressure with systolics in the 1 teens after second liter bolus of IV fluids. He essentially did receive sepsis bolus based on ideal body weight. Full sepsis bolus was not administered given obesity and concerns for potential decompensation. CT scans concerning for enteritis based on radiology read. He is essentially SIRS positive in the setting of enteritis with prolonged QT interval. Overall, he is not well- appearing. I feel he would benefit from broad spectrum antibiotics in the setting of SIRS + enteritis. He was started on vancomycin and zosyn. For his prolonged QT, he was given IV magnesium, though his magnesium level is not significantly low. Per the patient's request given that he follows at [facility], I called and had an interactive discussion with Dr. Layton at [facility]. She advised there on very high level divert and have an incredibly long waiting list for hospital medicine beds. Given this, they are unable to accept the patient for transfer, however he was waitlisted for a bed. They stated that if his status changes and should he need upgrade to ICU status, such as initiation of pressors, to call them back and let them know if status changes this would change his bed request level. Given I feel that he needs admission pending blood cultures and for continued monitoring of his heart, I called and had an interactive discussion with Dr. Starks. He admitted the patient for further evaluation and management. Patient was admitted in stable condition. Family updated to plan of care. Critical Care Critical Care Time Critical Care Time: Yes Attestation: On 09/27/23, the high probability of a clinically significant, sudden or life threatening deterioration of the following system(s) required my full and direct attention, intervention and personal management. The time I documented below is in addition to time spent performing reported procedures but includes the following listed in this critical care notation. Total Time Total Critical Care Time: 45
--- NOTE | 2023-09-27 09:01 | ECG_ITS ---
APPROVED REPORT Exam: Resting ECG HR:51 bpm ECG Measurements Heart Rate 51 AXES RI 175 P -12 QRSd 108 QRS 12 QT 488 T -7 QTc 465 Conclusion SINUS BRADYCARDIA PROLONGED QT INTERVAL Electronically signed by : JASMYNE LOPEZ, 09/27/2023 16:30:11
[2023-09-27 09:08] LABS: VBG Base Excess 0.5 mmol/L (-2.4-2.3); VBG HCO3 23.4 mmol/L (23-30); VBG Oxygen Saturation 97.9 % (50-70); VBG PCO2 29.5 mmol/L (35-51); VBG PH 7.52 mmol/L (7.31-7.41); VBG PO2 93.5 mmol/L (28-40); VBG Total CO2 24.3 mmol/L (23-27)
[2023-09-27 09:09] LABS: Lactate Venous 2.7 mmol/L (0.4-2.0)
[2023-09-27 09:14] LABS: Coronavirus 19, PCR Not Detected (NotDetected); Influenza A, PCR Not Detected (NotDetected); Influenza B, PCR Not Detected (NotDetected)
[2023-09-27 09:15] LABS: Basophils % 0.9 % (0.1-2.0); Eosinophils # 0.1 K/mm3 (0.0-0.4); Hemoglobin 13.5 g/dL (14.1-18.0); Lymphocytes # 0.4 K/mm3 (0.7-4.5); Lymphocytes % 11.6 % (10-50); Mean Corpuscular HGB Conc 33.9 g/dL (31.8-35.4); Mean Corpuscular Hemoglobin 33.2 pg (27.0-31.2); Mean Platelet Volume 8.6 fl (7.4-10.4); Monocytes # 0.3 K/mm3 (0.1-1.0); Monocytes % 8.2 % (1.7-9.3); Neutrophils # 2.7 K/mm3 (1.8-7.8); Neutrophils % 75.3 % (37.0-80.0); Platelet Count 122 K/mm3 (142-424); Red Blood Count 4.08 M/mm3 (4.60-6.20); Red Cell Distribution Width 14.9 % (11.5-17.5); White Blood Count 3.6 K/mm3 (4.8-10.8)
[2023-09-27 09:19] LABS: Alanine Aminotransferase 28 U/L (12-78); Albumin Level 2.9 g/dl (3.5-5.0); Albumin/Globulin Ratio 0.7 (1.1-1.8); Alkaline Phosphatase 149 U/L (38-126); Anion Gap 8.5 mEq/L (5-15); Aspartate Amino Transferase 74 U/L (17-59); Bilirubin,Total 1.4 mg/dl (0.2-1.3); Blood Urea Nitrogen 8 mg/dl (9-20); Calcium 8.9 mg/dl (8.4-10.2); Carbon Dioxide 24 mmol/L (22.0-30.0); Chloride 108 mmol/L (98-107); Creatine Kinase 32 U/L (55-170); Creatinine Clearance Estimated 397 mL/min (50-200); Estimated Glomerular Filt Rate 228 ml/min (>60); GFR (African American) 276 ML/MIN (>60); Globulin 4.2 g/dL (1.3-3.2); Glucose 96 mg/dl (74-100); Lipase 27 U/L (23-300); Potassium 4.5 mmoL/L (3.5-5.1); Sodium 136 mmol/L (136-145); Total Protein,Serum 7.1 g/dl (6.3-8.2)
[2023-09-27 09:22] LABS: Lactic Acid 2.4 mmol/L (0.7-2.1)
[2023-09-27 09:27] LABS: D-Dimer 0.47 ug/mL (0.0-0.5)
--- NOTE | 2023-09-27 09:35 | PC.NURSE ---
patient o2 sat dropping while sleeping. nasal cannula reapplied at 2L to raise oxygen saturation
[2023-09-27 09:36] LABS: Troponin I < 0.01 ng/ml (0.00-0.034)
[2023-09-27 09:39] LABS: Procalcitonin 0.098 ng/mL (0.0-2.0); T4 (Thyroxine) 12.4 ug/dl (5.53-11.0)
[2023-09-27 09:53] LABS: Thyroid Stimulating Hormone 0.47 uIU/mL (0.465-4.68)
[2023-09-27] MEDS: LACTATED RINGERS 1000ML 1,000 ML 999 ML IV (09:57)
--- NOTE | 2023-09-27 10:09 | PC.NURSE ---
DR LOPEZ AT BEDSIDE TO UPDATE PT
--- NOTE | 2023-09-27 10:24 | CT_ITS ---
FINAL REPORT TECHNIQUE: Thin section axial CT with contrast with multiplanar reconstruction axial images through the chest were performed by computed tomography. This study was performed with techniques to keep radiation doses as low as reasonably achievable, (ALARA). Individualized dose reduction techniques using automated exposure control or adjustment of mA and/or kV according to the patient's size were employed. CLINICAL HISTORY: SIRS +, pancreatic CA patient COMPARISON: None FINDINGS: Pulmonary vessels enhance in normal fashion without evidence of embolism. Thoracic aorta shows no dissection or aneurysm. There is a right lower lobe nodule, 12 mm in size, and continued follow-up is recommended. There is no significant pleural effusion. There is no significant pericardial effusion. No mediastinal or hilar adenopathy is present. Gynecomastia is noted. IMPRESSION: No evidence of pulmonary embolus or thoracic aortic dissection. 12 mm right lower lobe nodule, continued follow-up is recommended. Reviewed, Interpreted and Dictated by Eligio Palomares MD Transcribed by Tess Alexander Authenticated and [facility]
--- NOTE | 2023-09-27 10:24 | CT_ITS ---
FINAL REPORT TECHNIQUE: Oral and IV contrast enhanced exam CLINICAL HISTORY: SIRS +, pancreatic CA patient COMPARISON: 05/16/2022 FINDINGS: Abdomen: Lung bases are clear. The gallbladder is distended. The posterior liver dome lesion seen on the prior examination of 2022 has decreased in size, measuring 14 mm, previously was 25 mm, which suggests a therapeutic response. However there are 2 new low-density lesions in the liver, both near the gallbladder fossa, measuring 9 and 10 mm respectively. No biliary ductal dilatation is present. These may represent metastases or possibly cystic processes. There is a hypodense lesion in the body of the pancreas measuring 51 x 31 mm in size, was previously 77 x 47 mm in size, which extends posteriorly in the pancreas. There is a separate 54 x 36 mm lesion in the pancreatic tail, was previously 56 x 39 mm, not significantly changed. There is an abnormal soft tissue density along the proximal course of the superior mesenteric artery, best seen on image #38, that measures 32 x 27 mm in size, was previously 36 x 33 mm in size. The spleen and adrenal glands are unremarkable. Bilateral renal cysts are present. There is free fluid in the small bowel that may represent an ileus or enteritis. Pelvis: The appendix is not visualized. Pelvic bowel loops are remarkable for free fluid in the pelvic portion of the bowel as well. No fluid collection or adenopathy is seen. The prostate is unremarkable in appearance. IMPRESSION: Improvement of primary pancreatic tumor and adjacent adenopathy. Improvement in the size of a presumed previous liver metastasis, however there are 2 new low-density lesions present, indeterminate for metastasis or cysts. Fluid-filled large and small bowel, ileus versus enteritis. Reviewed, Interpreted and Dictated by Eligio Palomares MD Transcribed by Tess Alexander Authenticated and [facility]
[2023-09-27 10:29] LABS: Magnesium 1.7 mg/dl (1.6-2.3)
--- NOTE | 2023-09-27 10:33 | ECG_ITS ---
APPROVED REPORT Exam: Resting ECG HR:50 bpm ECG Measurements Heart Rate 50 AXES IA 157 P 14 QRSd 108 QRS 6 QT 494 T -10 QTc 466 Conclusion SINUS BRADYCARDIA MINIMAL VOLTAGE CRITERIA FOR LVH, CONSIDER NORMAL VARIANT [MEETS CRITERIA IN ONE OF: R(aVL), S(V1), R(V5), R(V5/V6)+S(V1)] PROLONGED QT INTERVAL ABNORMAL ECG Electronically signed by : JASMYNE LOPEZ, 09/27/2023 16:29:59
[2023-09-27 10:38] LABS: Adenovirus,PCR Not Detected (NotDetected); Bordetella Pertussis Not Detected (NotDetected); Chlamydophila Pneumoniae, PCR Not Detected (NotDetected); Coronavirus 19, PCR Not Detected (NotDetected); Coronavirus 229E Not Detected (NotDetected); Coronavirus NL63 Not Detected (NotDetected); Coronavirus OC43 Not Detected (NotDetected); Coronovirus HKU1,PCR Not Detected (NotDetected); Human Metapneumovirus Not Detected (NotDetected); Influenza A, PCR Not Detected (NotDetected); Influenza AH1, 2009 Not Detected (NotDetected); Influenza AH1, PCR Not Detected (NotDetected); Influenza AH3,PCR Not Detected (NotDetected); Influenza B, PCR Not Detected (NotDetected); Mycoplasma Pneumoniae, PCR Not Detected (NotDetected); Parainfluenza 1, PCR Not Detected (NotDetected); Parainfluenza 2, PCR Not Detected (NotDetected); Parainfluenza 3, PCR Not Detected (NotDetected); Parainfluenza 4, PCR Not Detected (NotDetected); Respiratory Syncytial Virus Not Detected (NotDetected); Rhinovirus/Enterovirus Not Detected (NotDetected)
--- NOTE | 2023-09-27 10:44 | CT_ITS ---
FINAL REPORT TECHNIQUE: Axial imaging of the head was obtained without contrast. This study was performed with techniques to keep radiation doses as low as reasonably achievable, (ALARA). Individualized dose reduction techniques using automated exposure control or adjustment of mA and/or kV according to the patient's size were employed. CLINICAL HISTORY: altered, diaphoretic COMPARISON: None FINDINGS: Mild atrophy and chronic ischemic white matter changes are noted. There is a remote lacunar infarct in the left basal ganglia. No cortical edema is present. There is no mass or hemorrhage. Ventricles are normal. Bone windows show no skull fracture or obvious obstructive lesion. IMPRESSION: No acute intracranial abnormality or obvious mass. Mild atrophy and chronic ischemic white matter changes as above. Reviewed, Interpreted and Dictated by Eligio Palomares MD Transcribed by Tess Alexander Authenticated and [facility]
--- NOTE | 2023-09-27 10:44 | CT_ITS ---
FINAL REPORT CLINICAL HISTORY: altered, diaphoretic COMPARISON: None FINDINGS: CTA HEAD TECHNIQUE: Thin section axial CT with contrast with 3D MIP reconstruction. This study was performed with techniques to keep radiation doses as low as reasonably achievable, (ALARA). Individualized dose reduction techniques using automated exposure control or adjustment of mA and/or kV according to the patient's size were employed. FINDINGS: No aneurysm is seen. Major intracranial vessels are patent without significant stenosis. . IMPRESSION: Unremarkable Reviewed, Interpreted and Dictated by Eligio Palomares MD Transcribed by Tess Alexander Authenticated and [facility]
--- NOTE | 2023-09-27 10:44 | CT_ITS ---
FINAL REPORT CLINICAL HISTORY: altered, diaphoretic COMPARISON: None FINDINGS: CT NECK ANGIO WITH CONTRAST TECHNIQUE: Thin section axial CT with IV contrast supplemented with 3D MIP reconstruction. This study was performed with techniques to keep radiation doses as low as reasonably achievable, (ALARA). Individualized dose reduction techniques using automated exposure control or adjustment of mA and/or kV according to the patient's size were employed. NASCET criteria and technique was utilized during interpretation. FINDINGS: Aortic arch: Arch shows no significant narrowing. Great vessel origins are widely patent. Right carotid: No significant stenosis is seen of the cervical common or internal carotid artery. Left carotid: No significant stenosis is seen of the cervical common or internal carotid artery. Vertebrals: The vertebral arteries are codominant. No significant stenosis is present. IMPRESSION: No significant stenosis of the cervical carotid arteries Reviewed, Interpreted and Dictated by Eligio Palomares MD Transcribed by Tess Alexander Authenticated and [facility]
--- NOTE | 2023-09-27 10:49 | PC.NURSE ---
I rounded on the pt. Pt states he is unable to give a urine sample at this time. no needs voiced. no new complaints. call arzola in reach.
[2023-09-27 11:46] LABS: Microscopic, Urine URINE MICROSCOPIC (MICROSCOPIC)
[2023-09-27] MEDS: 0.9 % SODIUM CHLORIDE 50 ML VIAL 40 ML IV ×2 (11:58)
[2023-09-27] MEDS: IOPAMIDOL-370 (76%);100ML BOTTLE 100 ML IV (11:59)
[2023-09-27] MEDS: IOPAMIDOL-370 (76%);100ML BOTTLE 80 ML IV (11:59)
[2023-09-27] MEDS: SODIUM CHLORIDE 0.9% 10ML SYR (RAD ONLY) 10 ML IV (11:59)
[2023-09-27 12:03] LABS: Appearance,Urine CLEAR (Clear); Bilirubin,Urine Negative (Negative); Blood, Urine Negative (Negative); Color,Urine YELLOW (Yellow); Glucose,Urine (UA) Negative (Negative); Ketones,Urine Negative (Negative); Leukocyte Esterase,Urine Negative (Negative); Nitrate,Urine Negative (Negative); Protein,Urine Negative (Negative)
[2023-09-27 12:19] LABS: NT Pro Brain Natriuretic Pep. 179 pg/mL (0-125)
--- NOTE | 2023-09-27 12:40 | PC.NURSE ---
DR LOPEZ AT BEDSIDE
[2023-09-27] MEDS: MAGNESIUM SULFATE IN WATER 2 GM/50 ML PIGGYBACK IV (12:46)
[2023-09-27 12:59] LABS: Troponin I < 0.01 ng/ml (0.00-0.034)
[2023-09-27 13:09] LABS: Reflex Lactic Add Lactic Reflex
[2023-09-27 13:32] LABS: Lactic Acid Follow Up (RFLX 1) 1.8 mmol/L (0.7-2.1)
--- NOTE | 2023-09-27 13:39 | PC.NURSE ---
calling [facility] at this time.
[2023-09-27] MEDS: PIPERACILLIN/TAZO 3.375 GM in 0.9 % SODIUM CHLORIDE 50 ML IV ×2 (14:25→18:10)
[2023-09-27] MEDS: VANCOMYCIN HCL 2,500 MG in 0.9 % SODIUM CHLORIDE 250 ML 125 MG IV (14:56)
--- NOTE | 2023-09-27 15:20 | PC.NURSE ---
calling [facility] at this time for update.
--- NOTE | 2023-09-27 15:50 | PC.NURSE ---
o/p with at this time.
--- NOTE | 2023-09-27 15:50 | PC.NURSE ---
DR LOPEZ SPEAKING WITH DR CAMPBELL
--- NOTE | 2023-09-27 15:54 | PC.NURSE ---
[facility] NOTIFIED OF ADMISSION
--- NOTE | 2023-09-27 15:55 | P.HP_ITS ---
History of Present Illness *Admission Date: 09/27/23 *Reason for visit:: Weakness, fever *History of present illness: Mr. Jones is a 48-year-old male with history of pancreatic adenocarcinoma, status post chemo and radiation at . Last treatment on 08/08/2023. History of recurrent neutropenia, previous history of sepsis, obesity, ANDRIA. He presented to the ER with symptoms concerning for sepsis with diffuse sweating, hypotension, pain all over. [place] very weak and arms were painful. Denies any chest pain, nausea, vomiting or diarrhea. Denies any shortness of breath. Reports being shaky this morning. Sisters at bedside state that when he awoke today he was covered in sweat like he had gotten out of the shower. Denies headache, vomiting, diarrhea, worsening abdominal pain, or chest pain. En route to the ER he received a liter of LR. On arrival, patient found to be hypo tensive and bradycardic. Received an additional liter of IV fluids. Workup concerning for leukopenia. Lactate elevated 2.7. EKG showing QTc of 460. Initiated on empiric antibiotics. Given patient's underlying cancer, concern for immunocompromise state, criteria for sepsis, medicine consulted for admission. Sisters at bedside help support history. Family found him this morning incredibly diaphoretic, prompting them to call EMS. They note that this seems kind of similar to an episode that he had in the past, in which he had to be admitted at for low blood pressure. Back in June patient was admitted for hypotension undifferentiated shock. Was thought to have anaphylaxis to Neulasta. Blood cultures were negative. Hypertension medications were stopped at that time. Patient tearful on exam. [facility] Disclaimer: The information contained in this section may have been updated after the patient was seen, as this information can be updated by other users. Medical History Pancreatic cancer HTN (hypertension) Surgical History H/O hernia repair History of appendectomy Family History Father Lung cancer Sister Stomach cancer Brother Lung cancer Social History Smoking Status: Never smoker second hand exposure: No alcohol intake: never counseling provided: provider counseling substance use type: denies use current occupational status: employed Travel in the last 8 weeks: Inside the [place] household members: none housing: house current occupation: [employer] current occupational exposures/hazards: Yes caffeine: No Review of Systems Review of Systems Review of systems (narrative): 14 point review of systems performed, pertinent positives and negatives as per HPI Meds Home Medications and Allergies Home Medications ?Medication ?Instructions ?Recorded ?Confirmed ?Type duloxetine 30 mg capsule,delayed 30 mg PO DAILY 09/27/23 09/27/23 History release furosemide 20 mg tablet 20 mg PO DAILY 09/27/23 09/27/23 History gabapentin 300 mg capsule 300 mg PO TID 09/27/23 09/27/23 History loratadine 10 mg tablet 10 mg PO DAILY 09/27/23 09/27/23 History morphine 30 mg tablet,extended 30 mg PO BID 09/27/23 09/27/23 History release oxycodone 10 mg tablet 10 mg PO Q4H PRN Severe Pain 09/27/23 09/27/23 History (Scale Score 7-10) prochlorperazine maleate 10 mg 10 mg PO Q8H PRN Nausea And 09/27/23 09/27/23 History tablet Vomiting New Prescriptions to Start Prescriptions: Allergies Allergy/AdvReac Type Severity Reaction Status Date / Time irinotecan Allergy Verified 09/27/23 16:44 Exam Data for Last 24 hours Vital signs and Labs for Last 24 Hours: Temp Pulse Resp BP Pulse Ox O2 Del Method O2 Flow Rate 98.1 F 53 L 14 97/69 L 97 Room Air 3 09/27/23 10:28 09/27/23 15:00 09/27/23 08:55 09/27/23 15:00 09/27/23 15:00 09/27/23 09:04 09/27/23 08:55 Laboratory Results - last 24 hr 09/27/23 08:20: WBC 3.6 L, RBC 4.08 L, Hgb 13.5 L, Hct 40.0 L, MCV 98.0 H, MCH 33.2 H, MCHC 33.9, RDW 14.9, Plt Count 122 L, MPV 8.6, Neut % (Auto) 75.3, Lymph % (Auto) 11.6, [place] % (Auto) 8.2, Eos % (Auto) 4.0, Baso % (Auto) 0.9, Neut # (Auto) 2.7, Lymph # (Auto) 0.4 L, [place] # (Auto) 0.3, Eos # (Auto) 0.1, Baso # (Auto) 0.0, D-Dimer 0.47, Sodium 136, Potassium 4.5, Chloride 108 H, Carbon Dioxide 24, Anion Gap 8.5, BUN 8 L, Creatinine 0.40 L, Estimated Creat Clear 397 H, Estimated GFR 228, Est GFR ( Amer) 276, Glucose 96, Lactate 2.4 H, Calcium 8.9, Magnesium 1.7, Total Bilirubin 1.4 H, AST 74 H, ALT 28, Alkaline Phosphatase 149 H, Total Creatine Kinase 32 L, Troponin I < 0.01, C-Reactive Protein 10.0 H, NT-Pro-B Natriuret Pep 179 H, Total Protein 7.1, Albumin 2.9 L, Globulin 4.2 H, Albumin/Globulin Ratio 0.7 L, Lipase 27, Procalcitonin 0.098, TSH 0.47, Thyroxine (T4) 12.4 H 09/27/23 09:05: VBG pH 7.52 H, VBG pCO2 29.5 L, VBG pO2 93.5 H, VBG HCO3 23.4, VBG Total CO2 24.3, VBG O2 Saturation 97.9 H, VBG Base Excess 0.5, VBG Lactic Acid 2.7 H 09/27/23 09:06: Chlamy pneumoniae PCR Not detected, Adenovirus (PCR) Not detected, B. pertussis DNA (PCR) Not detected, Coronavirus OC43 (PCR) Not detected, Coronavirus HKU1 (PCR) Not detected, Coronavirus 229E (PCR) Not detec mariama, SARS-CoV-2 (PCR) Not detected 09/27/23 09:06: SARS-CoV-2 (PCR) Not detected, Coronavirus NL63 (PCR) Not detected, Human Metapneumovir PCR Not detected, Influenza A (H1) PCR Not detected, Influ A (H1N1/09) PCR Not detected, Influenza A (H3) PCR Not detected, Influenza Type A (PCR) Not detected, Influenza A Untype (PCR) Not detected, Influenza Type B (PCR) Not detected 09/27/23 09:06: Influenza Type B (PCR) Not detected, M. pneumoniae (PCR) Not detected, Parainfluenza 1 (PCR) Not detected, Parainfluenza 2 (PCR) Not detected, Parainfluenza 3 (PCR) Not detected, Parainfluenza 4 (PCR) Not detected, RSV (PCR) Not detected, Entero/Rhino (PCR) Not detected 09/27/23 11:44: Urine Color Yellow, Urine Appearance Clear, Urine pH 8.0, Ur Specific [place] 1.020, Urine Protein Negative, Urine Glucose (UA) Negative, Urine Ketones Negative, Urine Blood Negative, Urine Nitrate Negative, Urine Bilirubin Negative, Urine Urobilinogen 2.0, Ur Leukocyte Esterase Negative, Urine RBC None, Urine WBC None, Ur Squamous Epith Cells None, Urine Bacteria None 09/27/23 12:17: Troponin I < 0.01 09/27/23 13:17: Lactate 1.8 I & O for Last 24 hours: Intake & Output 09/24/23 09/25/23 09/26/23 09/27/23 23:59 23:59 23:59 23:59 Weight 127.006 kg Constitutional Constitutional: mild distress, obese, chronically ill appearing and cooperative *Routine HEENT Exam Head: Present normocephalic Eye: Present EOMI and PERRL ENT: Present mucous membranes moist *Routine Neck Exam Neck: Present supple; Absent lymphadenopathy *Routine Respiratory Exam Respiratory: Present wheezes (Left lung field) and normal respiratory effort; Absent rhonchi or crackles *Routine Cardiovascular Exam Cardiovascular: Present bradycardia Comments: Regular rhythm *Routine Abdominal Exam Abdominal: Present soft, normoactive bowel sounds, tenderness (Diffuse tenderness worse in the upper abdomen) and obese; Absent distended *Routine Rectal Exam Rectal:: deferred *Routine Genitalia Exam Genitalia:: deferred *Routine Extremities Exam Extremities: Absent cyanosis, clubbing or edema *Routine Skin Exam Skin: Present warm; Absent rash *Routine Neurological Exam Neurological: Present alert, oriented X3 and moving all extremities; Absent altered mental status Routine Psychiatric Exam Psychiatric: Present depressed and anxious Comments: Tearful Assessment and Plan *Assessment and plan (1) SIRS (systemic inflammatory response syndrome): Status: Acute Category: Medical Code(s): R65.10 - Systemic inflammatory response syndrome (SIRS) of non-infectious origin without acute organ dysfunction (2) History of pancreatic cancer: Status: Acute Category: Medical Code(s): Z85.07 - Personal history of malignant neoplasm of pancreas (3) General weakness: Status: Acute Category: Medical Code(s): R53.1 - Weakness (4) Prolonged QT interval: Status: Acute Category: Medical Code(s): R94.31 - Abnormal electrocardiogram [ECG] [EKG] (5) [place] on CPAP: Status: Chronic Category: Medical Code(s): G47.33 - Obstructive sleep apnea (adult) (pediatric); Z99.89 - Dependence on other enabling machines and devices (6) Obesity: Status: Chronic Qualifiers: Obesity type: due to excess calories Obesity classification: adult class 3 (BMI >= 40) Body mass index: BMI 50.0-59.9 Serious obesity comorbidity presence: without serious comorbidity Qualified Code(s): E66.01 - Morbid (severe) obesity due to excess calories; Z68.43 - Body mass index (BMI) 50-59.9, adult Category: Medical Code(s): E66.9 - Obesity, unspecified (7) Chronically on opiate therapy: Status: Acute Category: Medical Code(s): 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 Finished chemo and radiation 6 weeks ago. Presented to the ER with SIRS criteria. Concern for sepsis with inflammation of GI tract on imaging. Initiated on empiric antibiotics. Received 2 L of IV fluids prior to admission. Discussed case with ER physician, request admission for treatment of sepsis, monitoring of cultures, continued IV antibiotics. I agreed to admit for further management. Admitted to stepdown level of care. Blood pressure improving however patient still appears quite ill. Having bradycardia with QT prolongation. Problems addressed as follows: Sepsis Pancreatic Cancer -Leukopenia with white count of 3.6, hypotensive on arrival, elevated lactate of 2.7,Initial hypotension with blood pressure of 92/55, imaging concerning for enteritis. -Received 2 L fluid, will hold on further fluids at this time. Patient tolerating p.o. intake. -Initiated on vancomycin and Zosyn. Continue Zosyn 3.375 g every 6 hours scheduled. Vancomycin IV. Monitoring for renal toxicity. -Blood cultures obtained. - Urine culture pending. Urinalysis relatively unremarkable with negative nitrate and negative leuk esterase. Respiratory panel negative for all analytes. -Per my review of chest CT, no focal consolidation. -Per my review of abdominal CT, patient has fluid-filled large and small bowel. Concern for enteritis. Formal review shows possible decrease in size of primary and adjacent adenopathy along with liver lesion. Unfortunately has what appear to be 2 new low-density lesions -White cell count 3.6, hemoglobin 13. Platelets 122. Will obtain repeat CBC, CMP, magnesium in the morning. Liver enzymes marginally elevated with bilirubin 1.4, AST ALT and alk phos 74, 28, 149 respectively. Will obtain lipase in the morning Chronic opiate therapy. On morphine 30 mg extended release twice daily and oxycodone 10 mg every 4 hours for breakthrough pain due to his cancer related pain. Will resume his regimen due to abdominal pain on exam. -Resume gabapentin per home regimen 300 mg 3 times a day Anxiety/depression: Takes Cymbalta 30 mg at night, continue dosing. Holding Lasix due to hypotension Class II obesity complicates all aspects of his care. DNR P DMITRIY Regular diet Case was initially discussed with . Patient not on wait list at this time due to the length of the wait list. If symptoms change, patient shows decline, will attempt transfer to higher level of care given all of his cancer doctors and care is performed at and per patient request.
--- NOTE | 2023-09-27 16:20 | PC.NURSE ---
report called at this time
--- NOTE | 2023-09-27 16:29 | PC.NURSE ---
arrived by stretcher from ED
[2023-09-27 17:32] LABS: Lipase 28 U/L (23-300)
[2023-09-27] MEDS: IPRATROPIUM/ALBUTEROL 3 ML NEB IH (18:34)
[2023-09-27] MEDS: MORPHINE 30MG EXTENDED RELEASE TAB 30 MG PO (20:30)
[2023-09-27] MEDS: GABAPENTIN 300MG CAPSULE 300 MG PO (20:30)
[2023-09-27] MEDS: OXYCODONE 5MG IMMEDIATE RELEASE TABLET 10 MG PO (21:38)
[2023-09-28] VITALS (12 sets, daily range): BP systolic 96–144; BP diastolic 49–71; PULSE 53–71; RESP 13–20; TEMP 36.4–36.8; O2SAT 92–99; BMI 36.8
[2023-09-28] MEDS: PIPERCILLIN/TAZO 3.375 GM in 0.9 % SODIUM CHLORIDE 50 ML IV ×4 (01:19→18:26)
--- NOTE | 2023-09-28 02:37 | PC.NURSE ---
Updated [facility] transfer center. No bed available at this time.
[2023-09-28 06:39] LABS: Basophils % 1.1 % (0.1-2.0); Eosinophils # 0.2 K/mm3 (0.0-0.4); Eosinophils % 5.6 % (0.1-12.0); Hematocrit 38.1 % (42.0-52.0); Hemoglobin 12.9 g/dL (14.1-18.0); Lymphocytes # 0.6 K/mm3 (0.7-4.5); Lymphocytes % 13.9 % (10-50); Mean Corpuscular HGB Conc 33.9 g/dL (31.8-35.4); Mean Corpuscular Hemoglobin 32.5 pg (27.0-31.2); Mean Corpuscular Volume 95.8 fl (80-94); Mean Platelet Volume 8.6 fl (7.4-10.4); Monocytes # 0.3 K/mm3 (0.1-1.0); Monocytes % 6.5 % (1.7-9.3); Neutrophils # 2.9 K/mm3 (1.8-7.8); Neutrophils % 72.9 % (37.0-80.0); Platelet Count 131 K/mm3 (142-424); Red Blood Count 3.98 M/mm3 (4.60-6.20); Red Cell Distribution Width 15.2 % (11.5-17.5)
[2023-09-28 06:51] LABS: Alanine Aminotransferase 26 U/L (12-78); Albumin Level 2.7 g/dl (3.5-5.0); Albumin/Globulin Ratio 0.7 (1.1-1.8); Alkaline Phosphatase 153 U/L (38-126); Anion Gap 6.7 mEq/L (5-15); Aspartate Amino Transferase 74 U/L (17-59); Bilirubin,Total 1.3 mg/dl (0.2-1.3); Blood Urea Nitrogen 10 mg/dl (9-20); Calcium 8.8 mg/dl (8.4-10.2); Carbon Dioxide 26 mmol/L (22.0-30.0); Chloride 107 mmol/L (98-107); Creatinine Clearance Estimated 271 mL/min (50-200); Estimated Glomerular Filt Rate 143 ml/min (>60); GFR (African American) 173 ML/MIN (>60); Globulin 3.9 g/dL (1.3-3.2); Glucose 84 mg/dl (74-100); Magnesium 2.1 mg/dl (1.6-2.3); Potassium 3.7 mmoL/L (3.5-5.1); Sodium 136 mmol/L (136-145); Total Protein,Serum 6.6 g/dl (6.3-8.2)
--- NOTE | 2023-09-28 08:07 | EXP.ACUTE.PN ---
Subjective *Date: 09/28/23 *Time: 21:39 Interval history: Patient feeling better this morning. Afebrile overnight. Blood pressure remained stable. Heart rate improving, in the 50s and 60s. No arrhythmia on telemetry. Pain stable on current regimen. Tolerating p.o. intake. No nausea or vomiting. No shortness of breath. Did require 2 L oxygen overnight while sleeping due to his sleep apnea. Medical Exam Vital signs and Labs for Last 24 Hours: Vital Signs Temp Pulse Pulse Pulse Resp BP BP 09/28/23 08:00 58 L 16 104/70 L 09/28/23 07:57 09/28/23 07:30 53 L 09/28/23 06:55 09/28/23 06:00 58 L 16 96/54 L 09/28/23 05:00 09/28/23 04:00 55 L 15 102/62 L 09/28/23 04:00 55 L 09/28/23 02:45 09/28/23 02:00 56 L 13 100/49 L 09/28/23 01:00 09/28/23 00:00 71 09/28/23 00:00 09/28/23 00:00 98.0 F 57 L 13 144/62 H 09/27/23 23:00 09/27/23 22:00 59 L 16 102/60 L 09/27/23 21:00 09/27/23 20:00 65 09/27/23 20:00 09/27/23 20:00 99.1 F 84 20 123/64 09/27/23 18:40 09/27/23 18:40 56 L 09/27/23 18:40 66 09/27/23 18:40 09/27/23 17:00 09/27/23 16:52 98.4 F 52 L 18 122/64 09/27/23 16:45 55 L 09/27/23 16:40 52 L 09/27/23 16:29 97.5 F L 55 L 16 99/63 L 09/27/23 15:00 53 L 97/69 L 09/27/23 14:30 54 L 105/67 L 09/27/23 14:00 57 L 118/70 09/27/23 13:30 54 L 115/70 09/27/23 13:00 56 L 111/66 09/27/23 12:30 58 L 129/81 09/27/23 12:19 64 126/79 09/27/23 11:33 92 H 131/70 09/27/23 11:00 50 L 104/72 L 09/27/23 10:30 53 L 92/50 L 09/27/23 10:28 98.1 F 09/27/23 10:01 53 L 92/55 L 09/27/23 09:30 52 L 94/63 L 09/27/23 09:04 55 L 102/57 L 09/27/23 08:55 97.6 F 53 L 14 110/57 L 09/27/23 08:52 52 L 110/57 L Pulse Ox O2 Del Method O2 Flow Rate 09/28/23 08:00 97 Nasal Cannula 2 09/28/23 07:57 99 Nasal Cannula 2 09/28/23 07:30 98 Nasal Cannula 2 09/28/23 06:55 Nasal Cannula 2 09/28/23 06:00 96 Nasal Cannula 2 09/28/23 05:00 Nasal Cannula 2 09/28/23 04:00 94 L Nasal Cannula 2 09/28/23 04:00 09/28/23 02:45 Nasal Cannula 2 09/28/23 02:00 92 L Nasal Cannula 2 09/28/23 01:00 Nasal Cannula 2 09/28/23 00:00 09/28/23 00:00 96 Nasal Cannula 2 09/28/23 00:00 98 Nasal Cannula 2 09/27/23 23:00 Nasal Cannula 2 09/27/23 22:00 96 Nasal Cannula 2 09/27/23 21:00 Nasal Cannula 2 09/27/23 20:00 09/27/23 20:00 97 Nasal Cannula 2 09/27/23 20:00 100 Room Air 09/27/23 18:40 Nasal Cannula 2 09/27/23 18:40 09/27/23 18:40 09/27/23 18:40 97 Nasal Cannula 2 09/27/23 17:00 Room Air 09/27/23 16:52 100 Room Air 09/27/23 16:45 09/27/23 16:40 91 L Room Air 09/27/23 16:29 Room Air 09/27/23 15:00 97 09/27/23 14:30 95 09/27/23 14:00 96 09/27/23 13:30 97 09/27/23 13:00 94 L 09/27/23 12:30 99 09/27/23 12:19 100 09/27/23 11:33 94 L 09/27/23 11:00 98 09/27/23 10:30 98 09/27/23 10:28 09/27/23 10:01 98 09/27/23 09:30 95 09/27/23 09:04 99 Room Air 09/27/23 08:55 98 Nasal Cannula 3 09/27/23 08:52 100 Room Air Intake and Output 09/27/23 09/28/23 09/28/23 23:59 07:59 15:59 Intake Total 300 / 300 50 / 50 Output Total 0 / 0 Balance 300 / 300 50 / 50 Intake: Intake, Total IV Amount 300 / 300 50 / 50 Piperacillin/Tazo 3.375 gm In 0 50 / 50 50 / 50 .9 % Sodium Chloride 50 ml @ 100 mls/hr IV ONCE ONE Rx#: [id number] Vancomycin HCl 2,500 mg In 0.9 250 / 250 % Sodium Chloride 250 ml @ 125 mls/hr IV ONCE ONE Rx#:[id number] Output: Output, Urine Amount 0 / 0 Other: Number of Unmeasured Voids 1 Number of Bowel Movements 1 Weight 128.367 kg 130.272 kg Patient Weight 09/28/23 23:59 Weight 130.272 kg Laboratory Results - last 24 hr 09/27/23 08:20: WBC 3.6 L, RBC 4.08 L, Hgb 13.5 L, Hct 40.0 L, MCV 98.0 H, MCH 33.2 H, MCHC 33.9, RDW 14.9, Plt Count 122 L, MPV 8.6, Neut % (Auto) 75.3, Lymph % (Auto) 11.6, [place] % (Auto) 8.2, Eos % (Auto) 4.0, Baso % (Auto) 0.9, Neut # (Auto) 2.7, Lymph # (Auto) 0.4 L, [place] # (Auto) 0.3, Eos # (Auto) 0.1, Baso # (Auto) 0.0, D-Dimer 0.47, Sodium 136, Potassium 4.5, Chloride 108 H, Carbon Dioxide 24, Anion Gap 8.5, BUN 8 L, Creatinine 0.40 L, Estimated Creat Clear 397 H, Estimated GFR 228, Est GFR ( Amer) 276, Glucose 96, Lactate 2.4 H, Calcium 8.9, Magnesium 1.7, Total Bilirubin 1.4 H, AST 74 H, ALT 28, Alkaline Phosphatase 149 H, Total Creatine Kinase 32 L, Troponin I < 0.01, C-Reactive Protein 10.0 H, NT-Pro-B Natriuret Pep 179 H, Total Protein 7.1, Albumin 2.9 L, Globulin 4.2 H, Albumin/Globulin Ratio 0.7 L, Lipase 27, Procalcitonin 0.098, TSH 0.47, Thyroxine (T4) 12.4 H 09/27/23 09:05: VBG pH 7.52 H, VBG pCO2 29.5 L, VBG pO2 93.5 H, VBG HCO3 23.4, VBG Total CO2 24.3, VBG O2 Saturation 97.9 H, VBG Base Excess 0.5, VBG Lactic Acid 2.7 H 09/27/23 09:06: Chlamy pneumoniae PCR Not detected, Adenovirus (PCR) Not detected, B. pertussis DNA (PCR) Not detected, Coronavirus OC43 (PCR) Not detected, Coronavirus HKU1 (PCR) Not detected, Coronavirus 229E (PCR) Not detected, SARS-CoV-2 (PCR) Not detected 09/27/23 09:06: SARS-CoV-2 (PCR) Not detected, Coronavirus NL63 (PCR) Not detected, Human Metapneumovir PCR Not detected, Influenza A (H1) PCR Not detected, Influ A (H1N1/09) PCR Not detected, Influenza A (H3) PCR Not detected, Influenza Type A (PCR) Not detected, Influenza A Untype (PCR) Not detected, Influenza Type B (PCR) Not detected 09/27/23 09:06: Influenza Type B (PCR) Not detected, M. pneumoniae (PCR) Not detected, Parainfluenza 1 (PCR) Not detected, Parainfluenza 2 (PCR) Not detected, Parainfluenza 3 (PCR) Not detected, Parainfluenza 4 (PCR) Not detected, RSV (PCR) Not detected, Entero/Rhino (PCR) Not detected 09/27/23 11:44: Urine Color Yellow, Urine Appearance Clear, Urine pH 8.0, Ur Specific [place] 1.020, Urine Protein Negative, Urine Glucose (UA) Negative, Urine Ketones Negative, Urine Blood Negative, Urine Nitrate Negative, Urine Bilirubin Negative, Urine Urobilinogen 2.0, Ur Leukocyte Esterase Negative, Urine RBC None, Urine WBC None, Ur Squamous Epith Cells None, Urine Bacteria None 09/27/23 12:17: Troponin I < 0.01 09/27/23 13:17: Lactate 1.8 09/27/23 17:05: Lipase 28 09/28/23 05:44: WBC 4.0 L, RBC 3.98 L, Hgb 12.9 L, Hct 38.1 L, MCV 95.8 H, MCH 32.5 H, MCHC 33.9, RDW 15.2, Plt Count 131 L, MPV 8.6, Neut % (Auto) 72.9, Lymph % (Auto) 13.9, [place] % (Auto) 6.5, Eos % (Auto) 5.6, Baso % (Auto) 1.1, Neut # (Auto) 2.9, Lymph # (Auto) 0.6 L, [place] # (Auto) 0.3, Eos # (Auto) 0.2, Baso # (Auto) 0.0, Sodium 136, Potassium 3.7, Chloride 107, Carbon Dioxide 26, Anion Gap 6.7, BUN 10, Creatinine 0.60 L D, Estimated Creat Clear 271, Estimated GFR 143, Est GFR ( Amer) 173 D, Glucose 84, Calcium 8.8, Magnesium 2.1 D, Total Bilirubin 1.3, AST 74 H, ALT 26, Alkaline Phosphatase 153 H, Total Protein 6.6, Albumin 2.7 L, Globulin 3.9 H, Albumin/Globulin Ratio 0.7 L I & O for Labs for Last 24 Hours: Intake & Output 09/25/23 09/26/23 09/27/23 09/28/23 23:59 23:59 23:59 23:59 Intake Total 300 / 300 50 / 50 Output Total 0 / 0 Balance 300 / 300 50 / 50 Weight 128.367 kg 130.272 kg Constitutional: Present no acute distress, obese and chronically ill appearing Head: Present atraumatic and normocephalic ENT: Present normal exam Neck: Present normal inspection Respiratory: Present normal respiratory effort; Absent rhonchi, wheezes or crackles Cardiac: Present Regular Rhythm and Bradycardia GI: Present soft, tenderness (Upper abdomen, stable) and normal bowel sounds; Absent distention Rectal (male): Present deferred Extremities: Present normal inspection and full ROM Skin: Present intact; Absent erythema Neuro: Present Grossly Intact, alert, awake, oriented x 3 and moves all extremities Assessment and Plan *Assessment and plan (1) SIRS (systemic inflammatory response syndrome): Status: Acute Category: Medical Code(s): R65.10 - Systemic inflammatory response syndrome (SIRS) of non-infectious origin without acute organ dysfunction (2) History of pancreatic cancer: Status: Acute Category: Medical Code(s): Z85.07 - Personal history of malignant neoplasm of pancreas (3) General weakness: Status: Acute Category: Medical Code(s): R53.1 - Weakness (4) Prolonged QT interval: Status: Acute Category: Medical Code(s): R94.31 - Abnormal electrocardiogram [ECG] [EKG] (5) [place] on CPAP: Status: Chronic Category: Medical Code(s): G47.33 - Obstructive sleep apnea (adult) (pediatric); Z99.89 - Dependence on other enabling machines and devices (6) Obesity: Status: Chronic Qualifiers: Body mass index: BMI 50.0-59.9 Obesity classification: adult class 3 (BMI >= 40) Obesity type: due to excess calories Serious obesity comorbidity presence: without serious comorbidity Qualified Code(s): E66.01 - Morbid (severe) obesity due to excess calories; Z68.43 - Body mass index (BMI) 50-59.9, adult Category: Medical Code(s): E66.9 - Obesity, unspecified (7) Chronically on opiate therapy: Status: Acute Category: Medical Code(s): Z79.891 - [facility] (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 of opiate analgesic Plan 48-year-old male with history of pancreatic cancer, concern for being metastatic. Finished chemo and radiation 6 weeks ago. Presented to the ER with SIRS criteria. Concern for sepsis with inflammation of GI tract on imaging. Initiated on empiric antibiotics. Received 2 L of IV fluids prior to admission. Discussed case with ER physician, request admission for treatment of sepsis, monitoring of cultures, continued IV antibiotics. I agreed to admit for further management. Patient doing well, de-escalated to acute care level. He continues to require inpatient management. Blood pressure stable. Will discontinue telemetry. Awaiting culture results. Continuing antibiotics. Problems addressed as follows: Sepsis Pancreatic Cancer -White count increased to 4, platelets 131. Kidney function and electrolytes stable. Creatinine 0.6, BUN 10. Cultures remain negative. - Continue Zosyn 3.375 g every 6 hours scheduled. Vancomycin IV. Monitoring for renal toxicity. -Blood and Urine culture pending. Urinalysis relatively unremarkable with negative nitrate and negative leuk esterase. Respiratory panel negative for all analytes. -Ordered repeat CBC, CMP, magnesium in the morning. Liver enzymes marginally elevated with bilirubin 1.3, AST ALT and alk phos 74, 26, 153 respectively. lipase 28 Chronic opiate therapy. On morphine 30 mg extended release twice daily and oxycodone 10 mg every 4 hours for breakthrough pain due to his cancer related pain. Continuing home regimen. - gabapentin per home regimen 300 mg 3 times a day Anxiety/depression: Takes Cymbalta 30 mg at night, continue dose. Holding Lasix due to hypotension Class II obesity complicates all aspects of his care. DNR P DMITRIY Regular diet
[2023-09-28] MEDS: GABAPENTIN 300MG CAPSULE 300 MG PO ×3 (08:40→20:19)
[2023-09-28] MEDS: ENOXAPARIN 40MG/0.4ML SYRINGE 40 MG SQ (08:40)
[2023-09-28] MEDS: OXYCODONE 5MG IMMEDIATE RELEASE TABLET 10 MG PO (08:42)
[2023-09-28] MEDS: MORPHINE 30MG EXTENDED RELEASE TAB 30 MG PO ×2 (09:50→20:18)
--- NOTE | 2023-09-28 10:11 | PC.NURSE ---
0953 this RN was notified by Dr Starks that during am rounds, pt indicated to him that he wanted to be a full code and not a dnr. pt advanced directive that was signed by pt upon admission and copy of pt home advanced directive that was provided by pt sister (designated decision maker) were brought to pt room. differences between what full code and DNR meant were discussed. pt indicated that he just didnt want to be a vegetable pt asked if pt were to be found unresponsive, no heart beat and not breathing if staff would be able to tell how long he was down, or if he would be a vegetable pt was informed that it is unlikely that information could be determined immediately, and that if pt were able to be revived, the decision to remain on or be taken off of life support would be up to the advanced directive he has (or will update) and his decision maker/POA. pt indicated at this time that he wanted to revoke the DNR put in place upon admission and be made a full code.
--- NOTE | 2023-09-28 10:55 | P.CONPHA_ITS ---
Pharmacy Consult Date: 09/28/23 Time: 10:57 Referring provider: DR CAMPBELL Reason for Consult:: VANCOMYCIN DOSING CONSULT Allergies Allergy/AdvReac Type Severity Reaction Status Date / Time irinotecan Allergy Verified 09/27/23 16:44 Home Medications ?Medication ?Instructions ?Recorded ?Confirmed ?Type duloxetine 30 mg capsule,delayed 30 mg PO HS 09/27/23 09/27/23 History release furosemide 20 mg tablet 20 mg PO DAILY 09/27/23 09/27/23 History gabapentin 300 mg capsule 300 mg PO TID 09/27/23 09/27/23 History loratadine 10 mg tablet 10 mg PO DAILY 09/27/23 09/27/23 History morphine 30 mg tablet,extended 30 mg PO BID 09/27/23 09/27/23 History release oxycodone 10 mg tablet 10 mg PO Q4H PRN Severe Pain 09/27/23 09/27/23 History (Scale Score 7-10) prochlorperazine maleate 10 mg 10 mg PO Q8H PRN Nausea And 09/27/23 09/27/23 History tablet Vomiting potassium chloride 10 mEq 10 meq PO DAILY 09/28/23 09/28/23 History tablet,extended release(part/cryst) New Prescriptions to Start Prescriptions: Height: 1.88 m Weight: 130.272 kg Laboratory Results:: Laboratory Results - last 24 hr 09/27/23 08:20: NT-Pro-B Natriuret Pep 179 H 09/27/23 09:06: Chlamy pneumoniae PCR Not detected, Adenovirus (PCR) Not detected, B. pertussis DNA (PCR) Not detected, Coronavirus OC43 (PCR) Not detected, Coronavirus HKU1 (PCR) Not detected, Coronavirus 229E (PCR) Not detec mariama, SARS-CoV-2 (PCR) Not detected, Coronavirus NL63 (PCR) Not detected, Human Metapneumovir PCR Not detected, Influenza A (H1) PCR Not detected, Influ A (H1N1/09) PCR Not detected, Influenza A (H3) PCR Not detected, Influenza Type A (PCR) Not detected, Influenza Type B (PCR) Not detected, M. pneumoniae (PCR) Not detected, Parainfluenza 1 (PCR) Not detected, Parainfluenza 2 (PCR) Not detected, Parainfluenza 3 (PCR) Not detected, Parainfluenza 4 (PCR) Not detected, RSV (PCR) Not detected, Entero/Rhino (PCR) Not detected 09/27/23 11:44: Urine Color Yellow, Urine Appearance Clear, Urine pH 8.0, Ur Specific [place] 1.020, Urine Protein Negative, Urine Glucose (UA) Negative, Urine Ketones Negative, Urine Blood Negative, Urine Nitrate Negative, Urine Bilirubin Negative, Urine Urobilinogen 2.0, Ur Leukocyte Esterase Negative, Urine RBC None, Urine WBC None, Ur Squamous Epith Cells None, Urine Bacteria None 09/27/23 12:17: Troponin I < 0.01 09/27/23 13:17: Lactate 1.8 09/27/23 17:05: Lipase 28 09/28/23 05:44: WBC 4.0 L, RBC 3.98 L, Hgb 12.9 L, Hct 38.1 L, MCV 95.8 H, MCH 32.5 H, MCHC 33.9, RDW 15.2, Plt Count 131 L, MPV 8.6, Neut % (Auto) 72.9, Lymph % (Auto) 13.9, [place] % (Auto) 6.5, Eos % (Auto) 5.6, Baso % (Auto) 1.1, Neut # (Auto) 2.9, Lymph # (Auto) 0.6 L, [place] # (Auto) 0.3, Eos # (Auto) 0.2, Baso # (Auto) 0.0, Sodium 136, Potassium 3.7, Chloride 107, Carbon Dioxide 26, Anion Gap 6.7, BUN 10, Creatinine 0.60 L D, Estimated Creat Clear 271, Estimated GFR 143, Est GFR ( Amer) 173 D, Glucose 84, Calcium 8.8, Magnesium 2.1 D, Total Bilirubin 1.3, AST 74 H, ALT 26, Alkaline Phosphatase 153 H, Total Protein 6.6, Albumin 2.7 L, Globulin 3.9 H, Albumin/Globulin Ratio 0.7 L Medical History: Medical History (Updated 09/27/23 @ 18:28 by Alex Campbell MD) Pancreatic cancer HTN (hypertension) Assessment and Plan Assessment and plan all Dx Assessment and Plan for all problems:: Pharmacokinetic dosing service Objective: Patient: Floor: Age: 48 yo Serum creatinine: 0.6 mg/dL Height: 74.0 Inches Weight (kg): 130.27 Assessment: IBW (kg): 82.20 Dosing wt(kg): 130.272 Estimated Creatinine clearance (ml/min): 130 Clearance limited to 130 ml/min to reduce risk of overdosing. CRCL method: Cockcroft and Gault using ibw(default). Drug selected: Vancomycin Vd (liters): 84.7 (factor used: 0.65 L/kg) Santy (hr-1): 0.112 Half life (hrs): 6.19 CLvanco=?? 9.486 L/hr Recommended dose: 2500 mg Interval: 12 hrs Infusion time (hrs): 2.0 Predicted peak (mcg/mL): 35.8 Predicted trough (mcg/mL): 11.68 Total body weight is being used for vancomycin dosing. Recommendations: Give Vancomycin 2500 mg q 12 hrs with an expected Cpeak of 35.8 mcg/ml and an expected Ctrough of 11.68 mcg/ml AUC 0-24 /CAMELIA Data: CAMELIA 0.5 mcg/mL:?? AUC/CAMELIA:? 1054.2 CAMELIA 1.0 mcg/mL:?? AUC/CAMELIA:? 527.1 --------- CAMELIA 1.5 mcg/mL:?? AUC/CAMELIA:? 351.4 CAMELIA 2.0 mcg/mL:?? AUC/CAMELIA:? 263.5 Thank you for the consult
[2023-09-28] MEDS: VANCOMYCIN HCL 2,500 MG in 0.9 % SODIUM CHLORIDE 250 ML 125 MG IV ×2 (12:00→22:09)
--- NOTE | 2023-09-28 15:55 | PC.NURSE ---
pt is currently laying in bed talking with family. pt is a/o x 4, pt declined to get up to the chair for lunch, but was agreeable to sit up on the side of the bed and each lunch instead. nad noted. pt lung sounds are clear throughout. bowel sounds are active in all quads. pt has sisters at bedside visiting. during this shift pt changed his code status to full code. pt is able to ambulate to the restroom unaided. pt hr has remained above 57 bpm since 1100. pt bp has remained stable as well. pt has only requested oxycodone once this shift as of the time his note is written.
[2023-09-28] MEDS: DULOXETINE 30MG CAPSULE.DR 30 MG PO (20:18)
[2023-09-29] VITALS: BP 108/69; PULSE 61; RESP 16; TEMP 36.7; O2SAT 99
[2023-09-29] MEDS: PIPERCILLIN/TAZO 3.375 GM in 0.9 % SODIUM CHLORIDE 50 ML IV ×2 (00:24→06:19)
[2023-09-29 04:00] VITALS: BP 129/70; PULSE 60; RESP 19; TEMP 36.8; O2SAT 99; BMI 37.8
[2023-09-29 07:07] LABS: Alanine Aminotransferase 22 U/L (12-78); Albumin Level 2.5 g/dl (3.5-5.0); Albumin/Globulin Ratio 0.7 (1.1-1.8); Alkaline Phosphatase 142 U/L (38-126); Anion Gap 5.6 mEq/L (5-15); Aspartate Amino Transferase 59 U/L (17-59); Bilirubin,Total 0.7 mg/dl (0.2-1.3); Blood Urea Nitrogen 9 mg/dl (9-20); Calcium 8.4 mg/dl (8.4-10.2); Carbon Dioxide 27 mmol/L (22.0-30.0); Chloride 108 mmol/L (98-107); Creatinine Clearance Estimated 279 mL/min (50-200); Estimated Glomerular Filt Rate 143 ml/min (>60); GFR (African American) 173 ML/MIN (>60); Globulin 3.8 g/dL (1.3-3.2); Glucose 88 mg/dl (74-100); Magnesium 1.9 mg/dl (1.6-2.3); Potassium 3.6 mmoL/L (3.5-5.1); Sodium 137 mmol/L (136-145); Total Protein,Serum 6.3 g/dl (6.3-8.2)
[2023-09-29 08:00] VITALS: BP 123/76; PULSE 61; RESP 17; TEMP 36.6
[2023-09-29 08:01] LABS: Basophils % 1.3 % (0.1-2.0); Eosinophils # 0.3 K/mm3 (0.0-0.4); Eosinophils % 7.9 % (0.1-12.0); Hematocrit 36.9 % (42.0-52.0); Hemoglobin 12.3 g/dL (14.1-18.0); Lymphocytes # 0.5 K/mm3 (0.7-4.5); Lymphocytes % 15.8 % (10-50); Mean Corpuscular HGB Conc 33.4 g/dL (31.8-35.4); Mean Corpuscular Hemoglobin 32.7 pg (27.0-31.2); Mean Corpuscular Volume 98.1 fl (80-94); Mean Platelet Volume 8.4 fl (7.4-10.4); Monocytes # 0.3 K/mm3 (0.1-1.0); Monocytes % 9.1 % (1.7-9.3); Neutrophils # 2.1 K/mm3 (1.8-7.8); Neutrophils % 65.8 % (37.0-80.0); Platelet Count 117 K/mm3 (142-424); Red Blood Count 3.76 M/mm3 (4.60-6.20); Red Cell Distribution Width 15.1 % (11.5-17.5); White Blood Count 3.3 K/mm3 (4.8-10.8)
--- NOTE | 2023-09-29 08:09 | P.DS_ITS ---
General Admission date:: 09/27/23 Discharge date: 09/29/23 HPI HPI HPI: Mr. Jones is a 48-year-old male with history of pancreatic adenocarcinoma, status post chemo and radiation at . Last treatment on 08/08/2023. History of recurrent neutropenia, previous history of sepsis, obesity, ANDRIA. He presented to the ER with symptoms concerning for sepsis with diffuse sweating, hypotension, pain all over. [place] very weak and arms were painful. Denies any chest pain, nausea, vomiting or diarrhea. Denies any shortness of breath. Reports being shaky this morning. Sisters at bedside state that when he awoke today he was covered in sweat like he had gotten out of the shower. Denies headache, vomiting, diarrhea, worsening abdominal pain, or chest pain. En route to the ER he received a liter of LR. On arrival, patient found to be hypotensive and bradycardic. Received an additional liter of IV fluids. Workup concerning for leukopenia. Lactate elevated 2.7. EKG showing QTc of 460. Initiated on empiric antibiotics. Given patient's underlying cancer, concern for immunocompromise state, criteria for sepsis, medicine consulted for admission. Sisters at bedside help support history. Family found him this morning incredibly diaphoretic, prompting them to call EMS. They note that this seems kind of similar to an episode that he had in the past, in which he had to be admitted at for low blood pressure. Back in June patient was admitted for hypotension undifferentiated shock. Was thought to have anaphylaxis to Neulasta. Blood cultures were negative. Hypertension medications were stopped at that time. Patient tearful on exam. Hospital Course Hospital Course Hospital Course: 48-year-old male with history of pancreatic cancer, concern for being metastatic. Finished chemo and radiation 6 weeks ago. Presented to the ER with SIRS criteria. Concern for sepsis with inflammation of GI tract on imaging. Initiated on empiric antibiotics. Received 2 L of IV fluids prior to admission. Discussed case with ER physician, request admission for treatment of sepsis, monitoring of cultures, continued IV antibiotics. I agreed to admit for further management. Patient responded to fluids. Symptoms de-escalated rather quickly. Cultures obtained. On empiric antibiotics for 48 hours. Given clinical stability and no further events of hypotension, patient deemed stable to discharge home with close follow-up with his oncology team next week at . No indication for antibiotics at discharge. Problems addressed as follows: Sepsis/SIRS Pancreatic Cancer -On presentation white count was found to be low at 3.6, was hypotensive and tachycardic, imaging concerning for enteritis. Initiated on empiric antibiotics with vancomycin and Zosyn. Patient's white count remained between 3.3 and 4 during admission. No fevers, hypotension, tachycardia. Was monitored for 48 hours on telemetry because of his sinus bradycardia. No change in rate or arrhythmias. Kidney function remained normal with BUN 9, creatinine 0.6. Liver function stable with no significant elevation in enzymes. Bilirubin 1.3, AST 74, ALT 26, alk phos 153. Lipase normal at 28. Stable pain in abdomen. Tolerating p.o. intake. Having bowel movements. Blood cultures and urine cultures negative at 48 hours. No indication to continue antibiotics at discharge. Stable to discharge with close follow-up. Counseled on alternate etiologies for his SIRS/sepsis symptoms. Concern for taking his meds back to b [facility] and stacking the opiate doses. Counseled on keeping the . Encourage adequate hydration. Unclear etiology of SIRS state. Chronic opiate therapy. On morphine 30 mg extended release twice daily and oxycodone 10 mg every 4 hours for breakthrough pain due to his cancer related pain. Continuing home regimen. - gabapentin per home regimen 300 mg 3 times a day Anxiety/depression: Takes Cymbalta 30 mg at night, continue dose. Holding Lasix due to hypotension. Reevaluate Lasix after discharge. Class II obesity complicates all aspects of his care. Patient has follow-up next week with his oncology team at . Scheduled for PET scan at 7:30 in the morning on October 04 with 11:00 follow-up with Dr. Johnson. Patient aware of this appointment. Encouraged him to keep this appointment. Also had discussion about his CODE STATUS during admission. Patient presented with advanced directive and decision to be DNR at admission. Advance directive has been in place for a year. During admission after talking with friend with medical background, he changed his status to full code. We support patient's decision. Provided him with [facility] literature for further thought and consideration. Total time spent on discharge 32 minutes in counseling, documentation, chart review, and direct care with patient. Exam Data for Last 24 hours Vital signs and Labs for Last 24 Hours: Temp Pulse Resp BP Pulse Ox O2 Del Method O2 Flow Rate 98.2 F 60 19 129/70 99 Nasal Cannula 2 09/29/23 04:00 09/29/23 04:00 09/29/23 04:00 09/29/23 04:00 09/29/23 04:00 09/29/23 06:31 09/29/23 06:31 Laboratory Results - last 24 hr 09/29/23 05:45: WBC 3.3 L, RBC 3.76 L, Hgb 12.3 L, Hct 36.9 L, MCV 98.1 H, MCH 32.7 H, MCHC 33.4, RDW 15.1, Plt Count 117 L, MPV 8.4, Neut % (Auto) 65.8, Lymph % (Auto) 15.8, [place] % (Auto) 9.1, Eos % (Auto) 7.9, Baso % (Auto) 1.3, Neut # (Auto) 2.1, Lymph # (Auto) 0.5 L, [place] # (Auto) 0.3, Eos # (Auto) 0.3, Baso # (Auto) 0.0, Sodium 137, Potassium 3.6, Chloride 108 H, Carbon Dioxide 27, Anion Gap 5.6, BUN 9, Creatinine 0.60 L, Estimated Creat Clear 279, Estimated GFR 143, Est GFR ( Amer) 173, Glucose 88, Calcium 8.4, Magnesium 1.9, Total Bilirubin 0.7, AST 59, ALT 22, Alkaline Phosphatase 142 H, Total Protein 6.3, Albumin 2.5 L, Globulin 3.8 H, Albumin/Globulin Ratio 0.7 L I & O for Last 24 hours: Intake & Output 09/26/23 09/27/23 09/28/23 09/29/23 23:59 23:59 23:59 23:59 Intake Total 300 / 300 2505 / 2505 100 / 100 Output Total 0 / 0 1 / 1 0 / 0 Balance 300 / 300 2504 / 2504 100 / 100 Weight 128.367 kg 130.272 kg 133.9 kg Microbiology Reports for the Last 24 Hours: Microbiology 09/27/23 11:44 Urine,Clean Catch Urine Culture - Final NO GROWTH AFTER 48 HOURS 09/27/23 08:12 Blood Blood Culture - Preliminary NO GROWTH AFTER 24 HOURS 09/27/23 08:59 Blood Blood Culture - Preliminary NO GROWTH AFTER 24 HOURS Constitutional Constitutional: no acute distress, obese, chronically ill appearing and cooperative *Routine HEENT Exam Head: Present normocephalic Eye: Present EOMI and PERRL ENT: Present mucous membranes moist *Routine Neck Exam Neck: Present supple; Absent lymphadenopathy *Routine Respiratory Exam Respiratory: Present CTA bilaterally *Routine Cardiovascular Exam Cardiovascular: Present RRR *Routine Abdominal Exam Abdominal: Present soft, normoactive bowel sounds, tenderness (Worse across upper abdomen) and distended; Absent rebound or guarding *Routine Rectal Exam Patient deferred: visual exam *Routine Exam Patient deferred: penile exam *Routine Extremities Exam Extremities: Absent cyanosis, clubbing or edema *Routine Skin Exam Skin: Present warm; Absent rash *Routine Neurological Exam Neurological: Present alert, oriented X3 and moving all extremities; Absent altered mental status Results Data Completed and Pending Labs on day of discharge: Labs from last 24 hours 09/29/23 05:45 WBC 3.3 L RBC 3.76 L Hgb 12.3 L Hct 36.9 L MCV 98.1 H MCH 32.7 H MCHC 33.4 RDW 15.1 Plt Count 117 L MPV 8.4 Neut % (Auto) 65.8 Lymph % (Auto) 15.8 [place] % (Auto) 9.1 Eos % (Auto) 7.9 Baso % (Auto) 1.3 Neut # (Auto) 2.1 Lymph # (Auto) 0.5 L [place] # (Auto) 0.3 Eos # (Auto) 0.3 Baso # (Auto) 0.0 Sodium 137 Potassium 3.6 Chloride 108 H Carbon Dioxide 27 Anion Gap 5.6 BUN 9 Creatinine 0.60 L Estimated Creat Clear 279 Estimated GFR 143 Est GFR ( Amer) 173 Glucose 88 Calcium 8.4 Magnesium 1.9 Total Bilirubin 0.7 AST 59 ALT 22 Alkaline Phosphatase 142 H Total Protein 6.3 Albumin 2.5 L Globulin 3.8 H Albumin/Globulin Ratio 0.7 L Preliminary micro results at discharge 09/27/23 08:12 Blood Culture - Preliminary Blood NO GROWTH AFTER 24 HOURS 09/27/23 08:59 Blood Culture - Preliminary Blood NO GROWTH AFTER 24 HOURS DS: Diagnosis Discharge Diagnosis (1) SIRS (systemic inflammatory response syndrome): Status: Acute Code(s): R65.10 - Systemic inflammatory response syndrome (SIRS) of non-infectious origin without acute organ dysfunction (2) History of pancreatic cancer: Status: Acute Code(s): Z85.07 - Personal history of malignant neoplasm of pancreas (3) General weakness: Status: Acute Code(s): R53.1 - Weakness (4) Prolonged QT interval: Status: Acute Code(s): R94.31 - Abnormal electrocardiogram [ECG] [EKG] (5) [place] on CPAP: Status: Chronic Code(s): G47.33 - Obstructive sleep apnea (adult) (pediatric); Z99.89 - Dependence on other enabling machines and devices (6) Obesity: Status: Chronic Code(s): E66.9 - Obesity, unspecified Qualifiers: Body mass index: BMI 50.0-59.9 Obesity classification: adult class 3 (BMI >= 40) Obesity type: due to excess calories Serious obesity comorbidity presence: without serious comorbidity Qualified Code(s): E66.01 - Morbid (severe) obesity due to excess calories; Z68.43 - Body mass index (BMI) 50-59.9, adult (7) Chronically on opiate therapy: Status: Acute Code(s): Z79.891 - 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 (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 of opiate analgesic Meds Home Medications and Allergies Home Medications ?Medication ?Instructions ?Recorded ?Confirmed ?Type duloxetine 30 mg capsule,delayed 30 mg PO HS 09/27/23 09/27/23 History release furosemide 20 mg tablet 20 mg PO DAILY 09/27/23 09/27/23 History gabapentin 300 mg capsule 300 mg PO TID 09/27/23 09/27/23 History loratadine 10 mg tablet 10 mg PO DAILY 09/27/23 09/27/23 History morphine 30 mg tablet,extended 30 mg PO BID 09/27/23 09/27/23 History release oxycodone 10 mg tablet 10 mg PO Q4H PRN Severe Pain 09/27/23 09/27/23 History (Scale Score 7-10) potassium chloride 10 mEq 10 meq PO DAILY 09/28/23 09/28/23 History tablet,extended release(part/cryst) New Prescriptions to Start Prescriptions: Allergies Allergy/AdvReac Type Severity Reaction Status Date / Time irinotecan Allergy Verified 09/27/23 16:44 Discharge Plan Disposition Patient Disposition: Home, Self-Care Condition: Fair Follow up Plan Follow up with: Aleena Quintana APRN [Primary Care Provider] - 10/10/23 4:40 pm Provider,MD Bella [Referring] - Enter time for follow up (Follow-up with Dr. Johnson/oncology multidisciplinary clinic at on October 04 for PET scan and appointment thereafter. Please be at by 7:30 for PET scan with doctors appointment at 11 AM.) Prescriptions/Medication Reconciliation: Continued morphine 30 mg Tablet Extended Release 30 mg PO BID gabapentin 300 mg Capsule 300 mg PO TID furosemide 20 mg Tablet 20 mg PO DAILY loratadine 10 mg Tablet 10 mg PO DAILY duloxetine 30 mg Capsule,Delayed Release(Dr/Ec) 30 mg PO HS oxycodone 10 mg Tablet 10 mg PO Q4H PRN (Reason: Severe Pain (Scale Score 7-10)) Rx Instructions: Immediate Release potassium chloride 10 mEq tablet,ER particles/crystals 10 meq PO DAILY Patient Comments: TAKE 1 TABLET BY MOUTH ONCE DAILY. DO NOT CRUSH OR CHEW Discontinued prochlorperazine maleate 10 mg Tablet 10 mg PO Q8H PRN (Reason: Nausea And Vomiting) Problem Reconciliation Problems Reviewed?: Yes Patient Discharge Instructions ACTIVITY: Continue current activity DIET: continue same diet Patient Instructions: DI for Sepsis -- Adult, DI for Enteritis Print Language: Urdu Providers Primary Care Provider: Aleena Quintana Admit Provider: Alex Starks Attending Provider: Alex Starks
[2023-09-29] MEDS: MORPHINE 30MG EXTENDED RELEASE TAB 30 MG PO (08:35)
[2023-09-29] MEDS: GABAPENTIN 300MG CAPSULE 300 MG PO (08:36)
[2023-09-29] MEDS: POTASSIUM CHLORIDE 10MEQ CAPSULE.ER 10 MEQ PO (08:36)
[2023-09-29] MEDS: ENOXAPARIN 40MG/0.4ML SYRINGE 40 MG SQ (08:36)
[2023-09-29] MEDS: LORATADINE 10MG TABLET 10 MG PO (08:36)
--- NOTE | 2023-10-03 13:07 | CARE MANAGER ---
Attempted to contact patient x 2 related to hospital stay. Left VM. RICKEY Wood
== END 2023-09-29 10:13 | disposition home or self-care (01) ==
LOC: ER 15:53 → 2ND 16:16
PROVIDERS: Admitting Provider Internal Medicine Adolescent Medicine; Emergency Provider Emergency Medicine; PCP Nurse Practitioner Family; Visit Provider Internal Medicine Adolescent Medicine
DX: K52.89 Other specified noninfective gastroenteritis and colitis (principal); C25.1 Malignant neoplasm of body of pancreas; R65.10 Systemic inflammatory response syndrome (SIRS) of non-infectious origin without acute organ dysfunction; G89.3 Neoplasm related pain (acute) (chronic); E66.01 Morbid (severe) obesity due to excess calories; Z68.43 Body mass index [BMI] 50.0-59.9, adult; I10 Essential (primary) hypertension; Z79.899 Other long term (current) drug therapy; R53.1 Weakness; R94.31 Abnormal electrocardiogram [ECG] [EKG]; G47.33 Obstructive sleep apnea (adult) (pediatric); Z79.891 Long term (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 of opiate analgesic
CPT/HCPCS: 36415; 70450; 70496; 70498; 71045; 71275; 74177; 80053; 81001; 82550; 82803; 83605; 83690; 83735; 83880; 84145; 84436; 84443; 84484; 85025; 85378; 86140; 87040; 87086; 87581; 87632; 87635; 87636; 87798; 93005; 94640; 94761; 99291; G0378; J1650; J2543; J3370; J3475; J7120; J7620; Q9967